=== PATIENT | male | born 1970 | race Caucasian/White ===

== ENCOUNTER 2017-03-08 09:45 | Inpatient (IN) ==
--- NOTE | 2017-03-08 10:09 | Anesthesia Evaluation PreOp ---
Date of Encounter: 03/08/17 Time of Encounter: 10:07 - Past History Planned Operation: Left Total Shoulder Cardiac History: HTN, Hyperlipidemia Pulmonary History: Smoker (35 years), Snore, NATALIA Dx (uses CPAP) [employer] History: Denies Any Significant HX Other Medical History: Diabetes Type II Anesthesia History: No Prior Anesthetic Complications, Past Anesthesia Alcohol Use: occasionally Drug use: none Medications and Allergies BuPROPion [Wellbutrin] 75 mg PO DAILY 03/08/17 [History] Glimepiride [Amaryl] 4 mg PO DAILY 03/08/17 [History] Lisinopril [Zestril] 20 mg PO DAILY 03/08/17 [History] Metformin HCl [Glucophage Xr] 1,500 mg PO DAILY 03/08/17 [History] Metformin HCl [Glucophage Xr] 750 mg PO HS 03/08/17 [History] 3 Allergy/AdvReac Type Severity Reaction Status Date / Time No Known Allergies Allergy Verified 03/08/17 10:13 - Meds/Allergy Pre-op Review Medications Reviewed: Yes Allergies Reviewed: Yes Beta Blockers on Current Med List: No Anesthesia Results - Labs Laboratory Tests 03/07/17 03/07/17 03/07/17 11:06 11:06 11:06 WBC 9.4 Hgb 15.5 Hct 45.1 Plt Count 298 PT 11.6 INR 1.1 APTT 29.2 Sodium 139 Potassium 3.7 BUN 12 Creatinine 0.88 - Imaging EKG: report reviewed (03/07/2017 SINUS RHYTHM) Anesthesia Exam O2 Sat Height 1.68 m Height 1.68 m Weight 104.78 kg Weight 104.78 kg O2 Sat by Pulse Oximetry 95 Vital Signs Temp Pulse Resp BP Pulse Ox 98.6 F 74 18 113/76 95 03/08/17 10:14 03/08/17 10:14 03/08/17 10:14 03/08/17 10:14 03/08/17 10:14 Height: 5'6''/1.68 m Weight: 231 lbs/104.8 kg NPO (# of Hours): 8 Pain Scale: 0 Pain Scale Used: Numeric (1 - 10) - HEENT Pupil (Motor): EOMI Mallampati: III Teeth: Normal, Missing Oral Opening: Greater than 3 - [employer] LOC: Oriented [employer] Motor: Normal RUE, Normal LUE, Normal RLE, Normal LLE, Normal Face [employer] Sensory: Normal: RUE, LUE, RLE, LLE, Face - Cardiac Rhythm: Regular Murmur: None - Pulmonary Breath Sounds: bilateral Clear Respiratory Effort: Symmetrical Anesthesia Assess/Plan ASA Score: 3 Modified Woodacre Scale for Level of Consciousness: Cooperative, oriented, and tranquil Anesthetic Plan: General, Regional Monitoring Plan: Standard Monitors Recovery Plan: PACU
[2017-03-08] MEDS ORDERED: Lidocaine -MPF 1% 2 ML VIAL ID ONE (10:10)
[2017-03-08] MEDS ORDERED: Albuterol 2.5 MG/3 ML NEBULIZER IH ONE (10:10)
[2017-03-08] MEDS ORDERED: CeFAZolin Syr 2,000MG/20 ML 2,000 MG/20 ML SYRINGE IVPB ONE (10:15)
[2017-03-08] MEDS ORDERED: Albuterol 2.5 MG/3 ML NEBULIZER ONE (10:17)
[2017-03-08] MEDS: Ringers Solution, Lactated 1,000 ML IVC SCH ×2 (10:31→13:11)
--- NOTE | 2017-03-08 10:43 | History & Physical Report ---
Date of Encounter: 03/08/17 Time of Encounter: 10:43 24 Hour HP Update - Instructions Instructions: If the History and Physical is less than 30 days old and was completed prior to A.M. admission and or procedure and has NOT been updated on calendar day of procedure please complete this update prior to performing procedure. - Update Patient reports changes in Medical Condition: No Changes in examination, assessment, or condition: No Changes in Medication: No Preop tests/diagnostics Reviewed: Yes Surgery Remains Indicated: Yes Consent for Planned Operative Procedure(s) Verified: Yes - Pre-Operative Checklist Preoperative Checklist Indicated: No Prophylactic Antibiotic Ordered: Yes Is VTE Prophylaxis Indicated?: NO
[2017-03-08] MEDS ORDERED: *HR* FentaNYL (PF) 100 MCG/2 ML VIAL ONE (11:50)
[2017-03-08] MEDS ORDERED: *HR* Midazolam HCl 2 MG/2 ML VIAL ONE (11:50)
[2017-03-08] MEDS ORDERED: ROPIVACAINE HCL/PF 0.5% 30 ML VIAL ONE (11:51)
[2017-03-08] MEDS ORDERED: Bupivacaine/Clonidine Syringe 1 EACH SYRINGE ONE (11:52)
[2017-03-08] MEDS ORDERED: *HR* Propofol 200 MG/20 ML VIAL IVP ONE (12:10)
[2017-03-08] MEDS ORDERED: *HR* Succinylcholine 200 MG/10 ML VIAL IVP ONE (12:12)
--- NOTE | 2017-03-08 12:32 | Discharge Summary ---
Date of Encounter: 03/09/17 Time of Encounter: 06:47 - Discharge Diagnosis (1) Hypertension Priority: Secondary Status: Chronic Qualifiers: Hypertension type: unspecified Qualified Code(s): I10 - Essential (primary ) hypertension (2) Hyperlipidemia Priority: Secondary Status: Chronic Qualifiers: Hyperlipidemia type: unspecified Qualified Code(s): E78.5 - Hyperlipidemia , unspecified (3) Tobacco abuse Priority: Secondary Status: Chronic (4) Obesity (BMI 35.0-39.9 without comorbidity) Priority: Secondary Status: Chronic (5) Arthritis of left shoulder region Priority: Primary Status: Chronic (6) Status post total replacement of left shoulder Priority: Primary Status: Acute - Discharge Medications Home Medications: BuPROPion [Wellbutrin] 75 mg PO DAILY 03/08/17 [History] Glimepiride [Amaryl] 4 mg PO DAILY 03/08/17 [History] Lisinopril [Zestril] 20 mg PO DAILY 03/08/17 [History] Metformin HCl [Glucophage Xr] 1,500 mg PO DAILY 03/08/17 [History] Metformin HCl [Glucophage Xr] 750 mg PO HS 03/08/17 [History] OxyCODONE Immed Rel [Roxicodone 5 MG] 5 mg PO Q4HR PRN #24 tablet 03/08/17 [Rx] Allergies/Adverse Reactions: 3 Allergy/AdvReac Type Severity Reaction Status Date / Time No Known Allergies Allergy Verified 03/08/17 10:13 Primary care physician: Halie Smith - Patient Status Disposition: Home, Self-Care Condition: Good Functional capacity at discharge: independent ambulation Overall status at discharge: patient is progressing back to baseline - Discharge Instructions Follow Up With: Halie Smith MD [Primary Care Provider] - - Hospital Course Hospital course: Mr. Pearl is a 47 year old male Status post left total shoulder replacement The patient had an uneventful postoperative course. They received antibiotics and physical therapy and were discharged in stable condition. There will follow -up in the office in 2 weeks. - Time Spent with Patient Total time spent providing and/or coordinating discharge services:
[2017-03-08] MEDS ORDERED: Dexamethasone 4 MG/ML VIAL ONE (12:39)
[2017-03-08] MEDS ORDERED: Ondansetron 4 MG/2 ML VIAL ONE (12:39)
[2017-03-08] MEDS ORDERED: Ketamine *HR* 500 MG/10 ML MDV ONE (12:42)
[2017-03-08] MEDS ORDERED: EPHEDrine 50 MG/ML VIAL ONE (12:46)
[2017-03-08] MEDS ORDERED: *HR* HYDROmorphone (PF) 1 MG/ML SYRINGE IVP PRN ×2 (13:05→14:42)
[2017-03-08] MEDS ORDERED: *HR* Promethazine 25 MG/ML VIAL IVP PRN (13:05)
[2017-03-08] MEDS ORDERED: *HR* Labetalol 20 MG/4 ML SYRINGE IVP PRN (13:05)
[2017-03-08] MEDS ORDERED: Ketorolac 30 MG/ML VIAL ONE (13:22)
--- NOTE | 2017-03-08 13:27 | Orthopedic Operative Note ---
Date of procedure: 03/08/17 Pre-op diagnosis: Left shoulder arthritis/subscap tear irreparable Post-op diagnosis: same Procedure: Procedure: Total Shoulder Replacment Reverse, left removal of humeral implant Estimated blood loss: 100 cc Hardware: Metal and polyethylene replacement: Arthrex large glenoid baseplate, 2 4.5 screws. 1 6.5 screw, 42+4 glenosphere, 13 humeral stem, poly insert 6 Exam Under anesthesia: Full range of motion no instability. Procedural Notes: a massive retracted irreparable tear subscap, grade 4 arthritic changes glenoid arthritic changes around the humeral implant. Operative procedure: The patient was brought to the operating room and placed on the operating room table. After general anesthesia was administered the operative shoulder was examined. Findings were noted. The patient was placed in the modified beachchair position. All pressure points were padded appropriately. And the head was stabilized in the neutral position. The operative extremity was prepped and draped in the sterile surgical fashion. The patient received IV antibiotics prior to skin incision. A standard deltopectoral approach was made to the operative shoulder. Incision was made to the skin and subcutaneous tissue,hemo stasis was obtained with Bovie cautery. Using careful blunt dissection the cephalic vein was identified and mobilized medially. The deltopectoral interval was developed and the clavipectoral fascia was incised. The subscap was massively torn and retracted and irreparable. The humerus was dislocated patient noted to have grade 4 arthritic changes around the humeral implant, and the humeral cut was made along the anatomic neck. The humeral implant was removed with the cut humeral head. Anterior and posterior Bankart retractors were placed to expose the glenoid. The glenoid had grade 4 arthritic changes. The glenoid guide was seated and the centering hole was made. It was reamed with the appropriate reamer. A large baseplate was seated and secured with (2) 4.5 screws and one 6.5 screw. The baseplate was irrigated and dried and the 42+4 Glenosphere was seated and secured with the Baird taper. The Baird taper was tested and found to be secure the humerus was redislocated and prepared with the diaphyseal reamers, followed by a broaching process up to the appropriate size 13 in the patient's anatomic version. The metaphyseal reamer was then utilized. Trial reduction found the shoulder to be relocatable. Trial components were removed , The appropriate 13 stem was impacted in place in the patient's anatomic version. Trial reduction found the shoulder to be relocatable and stable with the appropriate 6. Trial component was removed and the real 6 was seated and secured the shoulder was reduced. The shoulder had excellent motion and excellent stability and no evidence of dislocation. The deep tissue was irrigated with pulse irrigation. The deltopectoral interval was closed with a running #1 PDS suture, subcutaneous tissue was irrigated and closed with 0 PDS suture, the skin was closed with Dermabond. The patient was placed in a sterile dressing, abduction brace and extubated. The patient was then transferred to the recovery room in stable condition. Anesthesia: GETA Surgeon: Efren Ingram Condition: stable Disposition: PACU
--- NOTE | 2017-03-08 13:47 | Anesthesia Procedures ---
Date of Encounter: 03/08/17 Time of Encounter: 12:00 Procedures: Anesthesia - Nerve Block Procedure Date: 03/08/17 Time: 12:00 Pre-op Diagnosis: left shoulder arthritis Surgical Procedure: left total shoulder Checklist: Correct Patient Identifier, Correct procedure, History checked Correct side: Left Blood Thinner: No Monitor Applied: EKG, BP, Pulse Oximetry Supplemental Oxygen via Nasal Cannula (L/min): 2 Sedation: Versed (mg): 2 Sedation: Fentanyl (mcg): 50 Indication: Post Op Analgesia Pre-op Neuro Deficits: No Block Type: Supraclavicular, Other (ICP/ICB) Catheter placed: No Sterile Technique: Yes Ultrasound used: Yes Anatomy identified: Yes Visual spread of Local: Yes Smooth Injection of Local: Yes Pain with Injection of Local: No Prep: Chlorhexadine Needle: 22 x 50 mm Stimuplex Local: 0.25% Bupivicaine w/Clonidine 20 mcg/cc (20 ml), Ropivacaine (0.5% 30 ml with 8 of decadron) Volume (cc): 50 Number of Attempts: 1 Complications: None/effective block Vitals: VSS
[2017-03-08 14:17] LABS: Hematocrit 42.7 % (37.5-50.1); Hemoglobin 14.5 g/dL (12.9-16.9)
--- NOTE | 2017-03-08 14:20 | Anesthesia Evaluation Post Op ---
Date of Encounter: 03/08/17 Time of Encounter: 14:19 - Vital Signs Vital Signs: Selected Entries 03/08/17 14:06 Temperature 97.1 F L Pulse Rate 83 Respiratory Rate 12 Blood Pressure 107/76 O2 Sat by Pulse Oximetry 99 Oxygen Flow Rate (LPM) 2 - Lungs Lungs: Clear Ascult./Percussion - Airway Airway: Non-obstructed - Cardiovascular Regular Rate - Mental Status Mental Status: Alert & Oriented, Answers Appropriately - Pain Pain Scale: 2 Pain Scale used: Numeric (1 - 10) - Nausea Vomiting Nausea Vomiting: Not Present - Hydration Hydration: Ice chips, Has not voided - Discharge PostOp Status: Transfer Patient to floor
[2017-03-08] MEDS ORDERED: Naloxone 0.4 MG/ML INJ IVP PRN (14:42)
[2017-03-08] MEDS ORDERED: D5% in Water 1,000 ML IVC PRN (14:42)
[2017-03-08] MEDS ORDERED: Ringers Solution, Lactated 1,000 ML IVC SCH (14:42)
[2017-03-08] MEDS ORDERED: *HR* OxyCODONE Immed Rel 5 MG TABLET PO PRN ×2 (14:42)
[2017-03-08] MEDS ORDERED: MOM Conc 10 ML UD.LIQ PO PRN (14:42)
[2017-03-08] MEDS ORDERED: *HR* Dextrose 50 % in Water (Syg) 50 ML SYRINGE IVP PRN (14:42)
[2017-03-08] MEDS ORDERED: Temazepam 15 MG CAPSULE PO PRN (14:42)
[2017-03-08] MEDS ORDERED: Sennosides 8.6 MG TABLET PO PRN (14:42)
[2017-03-08] MEDS ORDERED: Dextrose Gel 15 GM PO PRN ×2 (14:42)
[2017-03-08] MEDS ORDERED: Ondansetron 4 MG/2 ML VIAL IVP PRN (14:42)
[2017-03-08] MEDS: *HR* Enoxaparin 30 MG/0.3 ML SYRINGE SQ SCH (16:29)
[2017-03-08] MEDS: Insulin LISPRO 300 UNITS/3 ML VIAL SQ SCH (16:29)
[2017-03-08] MEDS ORDERED: *HR* Enoxaparin 30 MG/0.3 ML SYRINGE SQ SCH (18:00)
[2017-03-08] MEDS ORDERED: NON-FORMULARY MEDICATION 1 EACH EACH (Metformin Hcl [Glucophage Xr] 750 MG) PO SCH (21:00)
[2017-03-08] MEDS ORDERED: Insulin LISPRO 300 UNITS/3 ML VIAL SQ SCH (21:00)
[2017-03-08] MEDS: CeFAZolin Premix DUPLEX 2,000 MG/50 ML BAG IVPB SCH (21:29)
[2017-03-09 01:36] LABS: Hematocrit 38.3 % (37.5-50.1)
[2017-03-09 01:45] LABS: Hemoglobin 12.9 g/dL (12.9-16.9)
[2017-03-09 05:29] VITALS: BP 111/70
[2017-03-09] MEDS: CeFAZolin Premix DUPLEX 2,000 MG/50 ML BAG IVPB SCH (05:49)
[2017-03-09] MEDS: *HR* Enoxaparin 30 MG/0.3 ML SYRINGE SQ SCH (05:49)
--- NOTE | 2017-03-09 06:48 | Orthopedics Progress Note ---
Date of Encounter: 03/09/17 Time of Encounter: 06:48 - Assessment and Plan (1) Hypertension Current Visit: Yes Status: Chronic Qualifiers: Hypertension type: unspecified Qualified Code(s): I10 - Essential (primary ) hypertension (2) Hyperlipidemia Current Visit: Yes Status: Chronic Qualifiers: Hyperlipidemia type: unspecified Qualified Code(s): E78.5 - Hyperlipidemia , unspecified (3) Tobacco abuse Current Visit: Yes Status: Chronic (4) Obesity (BMI 35.0-39.9 without comorbidity) Current Visit: Yes Status: Chronic (5) Arthritis of left shoulder region Current Visit: Yes Status: Chronic (6) Status post total replacement of left shoulder Current Visit: Yes Status: Acute Subjective Interval history: Patient was seen this morning doing well without complaints. Afebrile vital signs stable. Operative extremity: Neurovascularly intact Dressing clean dry and intact Calves nontender Assessment and plan: Continue with postoperative care Hematocrit 38 discharged today Objective Vital signs: Vital Signs Temp Pulse Resp BP Pulse Ox 03/09/17 05:28 97.8 F 87 16 111/70 94 03/09/17 00:06 97.4 F L 83 16 104/65 96 03/08/17 19:36 97.5 F L 83 16 107/66 93 03/08/17 16:26 98.0 F 76 15 112/80 94 03/08/17 16:02 98.2 F 77 15 118/76 98 03/08/17 15:22 97.8 F 70 14 111/76 99 03/08/17 14:54 97.5 F L 82 16 107/69 96 03/08/17 14:53 96 03/08/17 14:46 97.5 F L 82 16 107/69 96 03/08/17 14:06 97.1 F L 83 12 107/76 99 03/08/17 13:56 80 17 109/77 99 03/08/17 13:46 84 16 102/81 99 03/08/17 13:36 97.0 F L 81 18 143/90 96 03/08/17 12:07 66 17 111/63 97 03/08/17 11:54 68 16 120/78 93 03/08/17 10:41 18 113/76 95 03/08/17 10:14 98.6 F 74 18 113/76 95 Intake and Output 03/08/17 03/08/17 03/09/17 15:59 23:59 07:59 Intake Total 1000 / 1000 50 / 50 Output Total 100 / 100 Balance 900 / 900 50 / 50 Intake: IV Fluids 1000 / 1000 50 / 50 Lactated Ringers 1,000 ML @ 75 1000 / 1000 mls/hr IVC .[id number] [facility] Rx#: [id number] Ancef Premix DUPLEX 2,000 mg In 50 / 50 50 ml @ 100 mls/hr IVPB Q8H [facility] Rx#:[id number] Oral 0 / 0 Output: Estimated Blood Loss 100 / 100 Other: # Voids 2 2 Weight 104.78 kg Blood Glucose* 113 309 - Labs CBC & BMP: 03/09/17 01:08 Labs: Abnormal lab results POC Glucose 309 (58-89) H 03/08/17 19:48 - VTE Documentation of Mechanical Device: Venous foot pump, device Consult Discharge Plan - Plan Referrals: Halie Smith MD [Primary Care Provider] -
[2017-03-09] MEDS: Insulin LISPRO 300 UNITS/3 ML VIAL SQ SCH (07:56)
[2017-03-09] MEDS ORDERED: *HR* Glimepiride 4 MG TABLET PO SCH (09:00)
[2017-03-09] MEDS ORDERED: METFORMIN HCL 1500 MG PO SCH (09:00)
[2017-03-09] MEDS ORDERED: Lisinopril 20 MG TABLET PO SCH (09:00)
== END 2017-03-09 13:15 | disposition home or self-care (01) | DRG 483 ==
LOC: SAMDAY 09:45 → 3NENU 14:17
PROVIDERS: ADMIT Orthopaedic Surgery; ATTEND Orthopaedic Surgery

== ENCOUNTER 2019-10-16 09:13 | Inpatient (IN) ==
[2019-10-16] MEDS ORDERED: *HR* Propofol 200 MG/20 ML VIAL IVP ONE (09:28)
[2019-10-16] MEDS ORDERED: *HR* Succinylcholine 200 MG/10 ML VIAL IVP ONE (09:28)
[2019-10-16] MEDS ORDERED: Lidocaine -MPF 2% 2 ML VIAL ONE (09:28)
[2019-10-16] MEDS ORDERED: Ethanol\\Acetic Acid\\Na Ace\\Ben 1,000 ML IRRIG.SOLN IR ONE (09:45)
[2019-10-16] MEDS ORDERED: Vancomycin 1,000 MG VIAL ONE (09:45)
[2019-10-16] MEDS ORDERED: *HR* OxyCODONE Immed Rel 5 MG TABLET PO PRN ×2 (10:09→14:17)
[2019-10-16] MEDS ORDERED: Ondansetron 4 MG/2 ML VIAL IVP ONE (10:09)
[2019-10-16] MEDS ORDERED: *HR* Promethazine 25 MG/ML VIAL IVP PRN (10:09)
[2019-10-16] MEDS ORDERED: *HR* HYDROmorphone PF 0.5 MG/0.5 ML SYRINGE IVP PRN (10:09)
[2019-10-16] MEDS ORDERED: CeFAZolin Syr 2,000MG/20 ML 2,000 MG/20 ML SYRINGE IVPB ONE (10:18)
[2019-10-16] MEDS ORDERED: *HR* Midazolam HCl 2 MG/2 ML VIAL ONE (10:28)
[2019-10-16] MEDS ORDERED: Ropivacaine/PF 0.5% 30 ML VIAL ONE (10:29)
[2019-10-16] MEDS ORDERED: ROPIVACAINE/PF/NS 0.25% 1 EACH SYRINGE INTRAART ONE (10:29)
[2019-10-16] MEDS ORDERED: *HR* FentaNYL (PF) 100 MCG/2 ML VIAL ONE (10:29)
[2019-10-16] MEDS ORDERED: Ringers Solution, Lactated 1,000 ML IVC SCH (10:30)
[2019-10-16] MEDS ORDERED: Lidocaine -MPF 4% 5 ML AMPUL ONE (11:44)
[2019-10-16] MEDS ORDERED: *HR* PHENYLEPHRINE 1,000 MCG/10 ML SYRINGE IVP ONE (11:55)
[2019-10-16] MEDS ORDERED: Dexamethasone 4 MG/ML VIAL ONE (12:16)
[2019-10-16] MEDS ORDERED: Ondansetron 4 MG/2 ML VIAL ONE (12:16)
[2019-10-16] MEDS ORDERED: EPHEDrine 50 MG/ML VIAL ONE (12:32)
[2019-10-16 14:05] LABS: Hematocrit 42.5 % (37.5-50.1); Hemoglobin 13.9 g/dL (12.9-16.9)
[2019-10-16] MEDS ORDERED: D5% in Water 1,000 ML IVC PRN (14:17)
[2019-10-16] MEDS ORDERED: *HR* Dextrose 50 % in Water (Vial) 50 ML VIAL IVP PRN (14:17)
[2019-10-16] MEDS ORDERED: MOM Conc 10 ML UD.LIQ PO PRN (14:17)
[2019-10-16] MEDS ORDERED: Sennosides 8.6 MG TABLET PO PRN (14:17)
[2019-10-16] MEDS ORDERED: Naloxone 0.4 MG/ML INJ IVP PRN (14:17)
[2019-10-16] MEDS ORDERED: Ondansetron 4 MG/2 ML VIAL IVP PRN (14:17)
[2019-10-16] MEDS ORDERED: Dextrose Gel 15 GM/37.5 ML TUBE PO PRN ×2 (14:17)
[2019-10-16] MEDS: *HR* Enoxaparin 30 MG/0.3 ML SYRINGE SQ SCH (16:45)
[2019-10-16] MEDS: CeFAZolin 2 GM/120 ML BAG IVPB SCH ×2 (16:46→23:52)
[2019-10-16] MEDS: Insulin LISPRO 300 UNITS/3 ML VIAL SQ SCH ×2 (17:01→17:03)
[2019-10-16] MEDS ORDERED: *HR* Enoxaparin 30 MG/0.3 ML SYRINGE SQ SCH (18:00)
[2019-10-16] MEDS: Ringers Solution, Lactated 1,000 ML IVC SCH (20:33)
[2019-10-16] MEDS: *HR* OxyCODONE/APAP 5/325 TABLET PO PRN (20:42)
[2019-10-16] MEDS ORDERED: Insulin LISPRO 300 UNITS/3 ML VIAL SQ SCH (21:00)
[2019-10-17] MEDS: *HR* Enoxaparin 30 MG/0.3 ML SYRINGE SQ SCH (05:58)
[2019-10-17] MEDS ORDERED: lisinopriL 20 MG TABLET PO SCH (09:00)
[2019-10-17] MEDS ORDERED: METFORMIN HCL PO SCH (09:00)
[2019-10-17] MEDS ORDERED: *HR* Glimepiride 4 MG TABLET PO SCH (09:00)
[2019-10-17] MEDS: Insulin LISPRO 300 UNITS/3 ML VIAL SQ SCH (09:02)
[2019-10-17] MEDS: Ringers Solution, Lactated 1,000 ML IVC SCH (09:13)
[2019-10-17] MEDS: *HR* OxyCODONE/APAP 5/325 TABLET PO PRN (09:20)
[2019-10-17 11:16] LABS: Hematocrit 38.7 % (37.5-50.1); Hemoglobin 12.7 g/dL (12.9-16.9)
[2019-10-17 11:34] LABS: BUN/Creatinine Ratio 18 (6-26); Blood Urea Nitrogen 13 mg/dL (6-20); Calcium 9.1 mg/dL (8.6-10.3); Carbon Dioxide 29 mEq/L (23-29); Chloride 100 mEq/L (98-107); Glucose 259 mg/dL (70-105); Osmolality,Calculated 295 (280-300); Potassium 3.9 mEq/L (3.5-5.1); Sodium 138 mEq/L (136-145); eGFR For African Americans > 60 (> 60); eGFR For Non-African Americans > 60 (> 60)
[2019-10-17 11:46] VITALS: BP 137/84
== END 2019-10-17 13:30 | disposition home or self-care (01) | DRG 483 ==
LOC: SAMDAY 09:13 → 3NENU 14:26
PROVIDERS: ADMIT Orthopaedic Surgery; ATTEND Orthopaedic Surgery

== ENCOUNTER 2020-07-14 21:05 | Inpatient (IN) ==
[2020-07-14 21:37] LABS: Basophils % 0.4 %; Hematocrit 45.7 % (37.5-50.1); Hemoglobin 15.3 g/dL (12.9-16.9); Immature Granulocytes % 0.6 % (0-4); Lymphocytes # 0.8 K/mcL (0.6-4.6); Lymphocytes % 16.3 %; Mean Corpuscular HGB Conc 33.5 g/dL (31.6-35.5); Mean Corpuscular Hemoglobin 32.3 pg (28.0-33.3); Mean Corpuscular Volume 96.4 fL (83.0-100.0); Mean Platelet Volume 9.6 fL (9.4-12.4); Monocytes # 0.6 K/mcL (0.0-1.3); Monocytes % 11.4 %; Neutrophils # 3.6 K/mcL (1.6-8.9); Platelet Count 223 K/mcL (140-400); Red Blood Count 4.74 M/mcL (4.19-5.50); Red Cell Distribution Width 13.1 % (11.5-14.5); Segmented Neutrophils % 71.3 %; White Blood Count 5.1 K/mcL (4.3-11.1)
[2020-07-14 21:57] LABS: BUN/Creatinine Ratio 19 (6-26); Blood Urea Nitrogen 20 mg/dL (6-20); Calcium 8.8 mg/dL (8.6-10.3); Carbon Dioxide 22 mEq/L (23-29); Chloride 98 mEq/L (98-107); Glucose 244 mg/dL (70-105); Osmolality,Calculated 285 (280-300); Potassium 3.8 mEq/L (3.5-5.1); Sodium 132 mEq/L (136-145); Troponin I 0.03 ng/mL (< 0.04); eGFR For African Americans > 60 (> 60); eGFR For Non-African Americans > 60 (> 60)
[2020-07-14 23:54] LABS: Adenovirus Not Detected (Not Detect); Coronavirus 229E Not Detected (Not Detect); Coronavirus HKU1 Not Detected (Not Detect); Coronavirus NL63 Not Detected (Not Detect); Coronavirus OC43 Not Detected (Not Detect)
[2020-07-14 23:56] LABS: Bordetella Pertussis Not Detected (Not Detect); Chlamydophila pneumoniae Not Detected (Not Detect); Human Metapneumovirus Not Detected (Not Detect); Human Rhinovirus/Enterovirus Not Detected (Not Detect); Influenza A Subtype 2009 H1 Not Detected (Not Detect); Influenza B Not Detected (Not Detect); Mycoplasma pneumoniae Not Detected (Not Detect); Parainfluenza Virus 1 Not Detected (Not Detect); Parainfluenza Virus 2 Not Detected (Not Detect); Parainfluenza Virus 3 Not Detected (Not Detect); Parainfluenza Virus 4 Not Detected (Not Detect); Respiratory Syncytial Virus Not Detected (Not Detect); SARS-CoV-2 DETECTED (Not Detect)
[2020-07-15] MEDS ORDERED: Dexamethasone Sodium Phos/PF 10 MG/ML VIAL IVP ONE (01:25)
[2020-07-15] MEDS ORDERED: Naloxone 0.4 MG/ML INJ IVP PRN (02:18)
[2020-07-15] MEDS ORDERED: Melatonin 3 MG TABLET PO PRN (02:18)
[2020-07-15] MEDS ORDERED: Ondansetron 4 MG/2 ML VIAL IVP PRN (02:18)
[2020-07-15] MEDS ORDERED: Dextrose Gel 15 GM/37.5 ML TUBE PO PRN ×2 (02:28)
[2020-07-15] MEDS ORDERED: *HR* Dextrose 50 % in Water (Vial) 50 ML VIAL IVP PRN (02:28)
[2020-07-15] MEDS ORDERED: D5% in Water 1,000 ML IVC PRN (02:28)
[2020-07-15] MEDS ORDERED: Insulin DETEMIR 100 UNIT/ML X5UNITS SUBQ ONE (02:29)
[2020-07-15] MEDS ORDERED: Ringers Solution, Lactated 1,000 ML IVC SCH (06:15)
[2020-07-15 06:46] LABS: Alanine Aminotransferase 23 Units/L (7-52); Aspartate Amino Transferase 44 Units/L (13-39)
[2020-07-15] MEDS: Dexamethasone Sodium Phos/PF 10 MG/ML VIAL IVP SCH (11:37)
[2020-07-15] MEDS: Insulin LISPRO 300 UNITS/3 ML VIAL SUBQ SCH ×4 (11:39→21:32)
[2020-07-15] MEDS: PARoxetine 20 MG TABLET PO SCH (11:40)
[2020-07-15] MEDS: *HR* Enoxaparin 40 MG/0.4 ML SYRINGE SQ SCH ×2 (11:40→21:34)
[2020-07-15] MEDS: lisinopriL 20 MG TABLET PO SCH (11:40)
[2020-07-15] MEDS ORDERED: Nicotine 2 MG GUM BC PRN (13:08)
[2020-07-15] MEDS ORDERED: Nicotine 14 MG PATCH.TD24 TD PRN (13:08)
[2020-07-15 13:17] LABS: Estimated Average Glucose 209 mg/dl; Hemoglobin A1C 8.9 %
[2020-07-15 14:00] LABS: BUN/Creatinine Ratio 30 (6-26); Blood Urea Nitrogen 28 mg/dL (6-20); Calcium 8.8 mg/dL (8.6-10.3); Carbon Dioxide 23 mEq/L (23-29); Chloride 97 mEq/L (98-107); Glucose 356 mg/dL (70-105); Osmolality,Calculated 294 (280-300); Potassium 4.3 mEq/L (3.5-5.1); Sodium 132 mEq/L (136-145); eGFR For African Americans > 60 (> 60); eGFR For Non-African Americans > 60 (> 60)
[2020-07-15] MEDS ORDERED: Remdesivir 200 MG in 0.9 % Sodium Chloride 100 ML IVPB ONE (14:00)
[2020-07-15] MEDS: Insulin DETEMIR 100 UNIT/ML X5UNITS SUBQ SCH (17:07)
[2020-07-15] MEDS ORDERED: Chloraseptic Spray 177 ML BOTTLE MM PRN (23:10)
[2020-07-16 04:16] LABS: Basophils % 0.1 %; Hematocrit 46.7 % (37.5-50.1); Hemoglobin 15.1 g/dL (12.9-16.9); Immature Granulocytes % 0.4 % (0-4); Lymphocytes # 0.9 K/mcL (0.6-4.6); Lymphocytes % 10.4 %; Mean Corpuscular HGB Conc 32.3 g/dL (31.6-35.5); Mean Corpuscular Hemoglobin 31.5 pg (28.0-33.3); Mean Corpuscular Volume 97.5 fL (83.0-100.0); Monocytes # 0.5 K/mcL (0.0-1.3); Monocytes % 5.4 %; Neutrophils # 7.5 K/mcL (1.6-8.9); Platelet Count 271 K/mcL (140-400); Red Blood Count 4.79 M/mcL (4.19-5.50); Red Cell Distribution Width 13.1 % (11.5-14.5); Segmented Neutrophils % 83.7 %
[2020-07-16 04:34] LABS: BUN/Creatinine Ratio 30 (6-26); Blood Urea Nitrogen 25 mg/dL (6-20); Calcium 9.2 mg/dL (8.6-10.3); Carbon Dioxide 26 mEq/L (23-29); Chloride 98 mEq/L (98-107); Glucose 289 mg/dL (70-105); Osmolality,Calculated 293 (280-300); Potassium 3.9 mEq/L (3.5-5.1); Sodium 134 mEq/L (136-145); eGFR For African Americans > 60 (> 60); eGFR For Non-African Americans > 60 (> 60)
[2020-07-16 04:35] LABS: Albumin 3.6 g/dL (3.5-5.7); Albumin/Globulin Ratio 0.9 (1.1-2.2); Bilirubin,Direct 0.1 mg/dL (0.0-0.2); Bilirubin,Indirect 0.3 mg/dL (0.0-1.0); Bilirubin,Total 0.4 mg/dL (0.3-1.0); Globulin 4.2 g/dL (2.4-3.5); Total Protein 7.8 g/dL (6.4-8.9)
[2020-07-16 04:40] LABS: D-Dimer 575 ng/mLFEU (0-500); Fibrinogen 870 mg/dL (169-393)
[2020-07-16] MEDS: Insulin LISPRO 300 UNITS/3 ML VIAL SUBQ SCH ×5 (08:10→21:41)
[2020-07-16] MEDS: Insulin DETEMIR 100 UNIT/ML X5UNITS SUBQ SCH (08:12)
[2020-07-16] MEDS: *HR* Enoxaparin 40 MG/0.4 ML SYRINGE SQ SCH ×2 (08:13→21:39)
[2020-07-16] MEDS: lisinopriL 20 MG TABLET PO SCH (08:14)
[2020-07-16] MEDS: PARoxetine 20 MG TABLET PO SCH (08:14)
[2020-07-16] MEDS: Dexamethasone Sodium Phos/PF 10 MG/ML VIAL IVP SCH (08:15)
[2020-07-16] MEDS: Remdesivir 100 MG in 0.9 % Sodium Chloride 100 ML IVPB SCH (15:39)
[2020-07-17 04:47] LABS: Hematocrit 43.6 % (37.5-50.1); Hemoglobin 14.5 g/dL (12.9-16.9); Mean Corpuscular HGB Conc 33.3 g/dL (31.6-35.5); Mean Corpuscular Hemoglobin 32.8 pg (28.0-33.3); Mean Corpuscular Volume 98.6 fL (83.0-100.0); Mean Platelet Volume 9.9 fL (9.4-12.4); Platelet Count 318 K/mcL (140-400); Red Blood Count 4.42 M/mcL (4.19-5.50)
[2020-07-17 04:48] LABS: White Blood Count 14.4 K/mcL (4.3-11.1)
[2020-07-17 05:05] LABS: Albumin 3.3 g/dL (3.5-5.7); Albumin/Globulin Ratio 0.9 (1.1-2.2); Bilirubin,Direct 0.1 mg/dL (0.0-0.2); Bilirubin,Indirect 0.3 mg/dL (0.0-1.0); Bilirubin,Total 0.4 mg/dL (0.3-1.0); Globulin 3.8 g/dL (2.4-3.5); Total Protein 7.1 g/dL (6.4-8.9)
[2020-07-17 05:06] LABS: BUN/Creatinine Ratio 35 (6-26); Blood Urea Nitrogen 26 mg/dL (6-20); Carbon Dioxide 29 mEq/L (23-29); Chloride 99 mEq/L (98-107); Glucose 231 mg/dL (70-105); Osmolality,Calculated 294 (280-300); Potassium 4.5 mEq/L (3.5-5.1); Sodium 136 mEq/L (136-145); eGFR For African Americans > 60 (> 60); eGFR For Non-African Americans > 60 (> 60)
[2020-07-17] MEDS: PARoxetine 20 MG TABLET PO SCH (07:38)
[2020-07-17] MEDS: lisinopriL 20 MG TABLET PO SCH (07:38)
[2020-07-17] MEDS: Dexamethasone Sodium Phos/PF 10 MG/ML VIAL IVP SCH (07:39)
[2020-07-17] MEDS: *HR* Enoxaparin 40 MG/0.4 ML SYRINGE SQ SCH ×2 (07:39→20:51)
[2020-07-17] MEDS: Insulin LISPRO 300 UNITS/3 ML VIAL SUBQ SCH ×3 (07:40→16:24)
[2020-07-17] MEDS: Insulin DETEMIR 100 UNIT/ML X5UNITS SUBQ SCH ×2 (07:40→20:52)
[2020-07-17] MEDS: Remdesivir 100 MG in 0.9 % Sodium Chloride 100 ML IVPB SCH (13:41)
[2020-07-18] MEDS: Insulin LISPRO 300 UNITS/3 ML VIAL SUBQ SCH ×5 (06:01→21:04)
[2020-07-18 06:36] LABS: Hematocrit 43.3 % (37.5-50.1); Hemoglobin 14.4 g/dL (12.9-16.9); Mean Corpuscular HGB Conc 33.3 g/dL (31.6-35.5); Mean Corpuscular Hemoglobin 32.7 pg (28.0-33.3); Mean Corpuscular Volume 98.2 fL (83.0-100.0); Mean Platelet Volume 10.1 fL (9.4-12.4); Platelet Count 362 K/mcL (140-400); Red Blood Count 4.41 M/mcL (4.19-5.50); Red Cell Distribution Width 12.9 % (11.5-14.5); White Blood Count 15.4 K/mcL (4.3-11.1)
[2020-07-18 07:05] LABS: BUN/Creatinine Ratio 40 (6-26); Blood Urea Nitrogen 25 mg/dL (6-20); Calcium 8.9 mg/dL (8.6-10.3); Carbon Dioxide 28 mEq/L (23-29); Chloride 98 mEq/L (98-107); Glucose 213 mg/dL (70-105); Osmolality,Calculated 291 (280-300); Potassium 4.4 mEq/L (3.5-5.1); Sodium 135 mEq/L (136-145); eGFR For African Americans > 60 (> 60); eGFR For Non-African Americans > 60 (> 60)
[2020-07-18 07:09] LABS: Albumin 3.3 g/dL (3.5-5.7); Bilirubin,Direct 0.1 mg/dL (0.0-0.2); Bilirubin,Indirect 0.4 mg/dL (0.0-1.0); Bilirubin,Total 0.5 mg/dL (0.3-1.0); Globulin 3.4 g/dL (2.4-3.5); Total Protein 6.7 g/dL (6.4-8.9)
[2020-07-18] MEDS: *HR* Enoxaparin 40 MG/0.4 ML SYRINGE SQ SCH (08:52)
[2020-07-18] MEDS: PARoxetine 20 MG TABLET PO SCH (08:59)
[2020-07-18] MEDS: lisinopriL 20 MG TABLET PO SCH (09:00)
[2020-07-18] MEDS: Insulin DETEMIR 100 UNIT/ML X5UNITS SUBQ SCH ×2 (09:00→21:06)
[2020-07-18] MEDS: Dexamethasone Sodium Phos/PF 10 MG/ML VIAL IVP SCH (09:00)
[2020-07-18] MEDS: Remdesivir 100 MG in 0.9 % Sodium Chloride 100 ML IVPB SCH (14:01)
[2020-07-19 03:24] LABS: Hemoglobin 14.6 g/dL (12.9-16.9); Mean Corpuscular HGB Conc 33.2 g/dL (31.6-35.5); Mean Corpuscular Hemoglobin 31.7 pg (28.0-33.3); Mean Corpuscular Volume 95.7 fL (83.0-100.0); Mean Platelet Volume 9.8 fL (9.4-12.4); Platelet Count 397 K/mcL (140-400); Red Cell Distribution Width 12.7 % (11.5-14.5); White Blood Count 17.1 K/mcL (4.3-11.1)
[2020-07-19 03:40] LABS: BUN/Creatinine Ratio 33 (6-26); Blood Urea Nitrogen 21 mg/dL (6-20); Calcium 8.7 mg/dL (8.6-10.3); Carbon Dioxide 30 mEq/L (23-29); Chloride 98 mEq/L (98-107); Glucose 178 mg/dL (70-105); Osmolality,Calculated 291 (280-300); Potassium 4.2 mEq/L (3.5-5.1); Sodium 137 mEq/L (136-145); eGFR For African Americans > 60 (> 60); eGFR For Non-African Americans > 60 (> 60)
[2020-07-19 03:45] LABS: Albumin 3.2 g/dL (3.5-5.7); Albumin/Globulin Ratio 0.9 (1.1-2.2); Bilirubin,Direct 0.1 mg/dL (0.0-0.2); Bilirubin,Indirect 0.5 mg/dL (0.0-1.0); Bilirubin,Total 0.6 mg/dL (0.3-1.0); Globulin 3.7 g/dL (2.4-3.5); Total Protein 6.9 g/dL (6.4-8.9)
[2020-07-19] MEDS: Insulin LISPRO 300 UNITS/3 ML VIAL SUBQ SCH ×4 (08:20→20:23)
[2020-07-19] MEDS: PARoxetine 20 MG TABLET PO SCH (08:22)
[2020-07-19] MEDS: lisinopriL 20 MG TABLET PO SCH (08:22)
[2020-07-19] MEDS: Insulin DETEMIR 100 UNIT/ML X5UNITS SUBQ SCH ×2 (08:22→20:24)
[2020-07-19] MEDS: Dexamethasone Sodium Phos/PF 10 MG/ML VIAL IVP SCH (08:27)
[2020-07-19] MEDS ORDERED: *HR* Enoxaparin 40 MG/0.4 ML SYRINGE SQ SCH (09:00)
[2020-07-19] MEDS ORDERED: *HR* LORazepam 2 MG/ML VIAL IVP PRN (12:31)
[2020-07-19] MEDS: Remdesivir 100 MG in 0.9 % Sodium Chloride 100 ML IVPB SCH (12:46)
[2020-07-19] MEDS ORDERED: Furosemide 20 MG/2 ML VIAL IVP ONE (15:19)
[2020-07-19 19:50] LABS: C-Reactive Protein 167 mg/L (Less than 10); Lactate Dehydrogenase 647 Units/L (140-271)
[2020-07-19 20:01] LABS: ABG Base Excess 7 mEq/L (-2 to 3); ABG HCO3 31 mEq/L (21-27); ABG Oxygen Saturation 92 % (95-98); ABG PCO2 42 mmHg (35-45); ABG PH 7.48 pH Units (7.32-7.45); ABG PO2 61 mmHg (85-104); ABG TCO2 33 mEq/L (20-26)
[2020-07-19 20:06] LABS: Ferritin 537 ng/mL (20-250); Hepatitis B Surface Antigen Nonreactive (Nonreactive)
[2020-07-19 20:35] LABS: Hepatitis C Virus Antibody Nonreactive (Nonreactive)
[2020-07-19 20:36] LABS: Hepatitis B Core IgM Nonreactive (Nonreactive)
[2020-07-19 20:37] LABS: Hepatitis A Antibody IgM Nonreactive (Nonreactive)
[2020-07-19] MEDS: Dexmedetomidine HCl 400 MCG/100 ML MLS IVC SCH (21:07)
[2020-07-20 06:54] LABS: Basophils % 0.2 %; Eosinophils % 0.1 %; Hematocrit 47.4 % (37.5-50.1); Hemoglobin 15.5 g/dL (12.9-16.9); Immature Granulocytes % 1.3 % (0-4); Lymphocytes # 0.9 K/mcL (0.6-4.6); Lymphocytes % 5.5 %; Mean Corpuscular HGB Conc 32.7 g/dL (31.6-35.5); Mean Corpuscular Hemoglobin 31.9 pg (28.0-33.3); Mean Corpuscular Volume 97.5 fL (83.0-100.0); Mean Platelet Volume 9.8 fL (9.4-12.4); Monocytes # 0.2 K/mcL (0.0-1.3); Monocytes % 1.3 %; Neutrophils # 15.4 K/mcL (1.6-8.9); Platelet Count 446 K/mcL (140-400); Red Blood Count 4.86 M/mcL (4.19-5.50); Red Cell Distribution Width 12.8 % (11.5-14.5); Segmented Neutrophils % 91.6 %; White Blood Count 16.8 K/mcL (4.3-11.1)
[2020-07-20 07:17] LABS: Alanine Aminotransferase 22 Units/L (7-52); Albumin 3.3 g/dL (3.5-5.7); Albumin/Globulin Ratio 0.8 (1.1-2.2); Alkaline Phosphatase 58 Units/L (34-104); Aspartate Amino Transferase 36 Units/L (13-39); BUN/Creatinine Ratio 32 (6-26); Bilirubin,Direct 0.2 mg/dL (0.0-0.2); Bilirubin,Indirect 0.6 mg/dL (0.0-1.0); Bilirubin,Total 0.8 mg/dL (0.3-1.0); Blood Urea Nitrogen 25 mg/dL (6-20); Calcium 9.2 mg/dL (8.6-10.3); Carbon Dioxide 34 mEq/L (23-29); Chloride 96 mEq/L (98-107); Globulin 4.2 g/dL (2.4-3.5); Glucose 86 mg/dL (70-105); Osmolality,Calculated 290 (280-300); Potassium 4.2 mEq/L (3.5-5.1); Sodium 138 mEq/L (136-145); Total Protein 7.5 g/dL (6.4-8.9); eGFR For African Americans > 60 (> 60); eGFR For Non-African Americans > 60 (> 60)
[2020-07-20] MEDS: Insulin LISPRO 300 UNITS/3 ML VIAL SUBQ SCH ×4 (07:49→20:24)
[2020-07-20] MEDS ORDERED: Nicotine 2 MG GUM BC PRN (08:00)
[2020-07-20] MEDS ORDERED: *HR* Dextrose 50 % in Water (Vial) 50 ML VIAL IVP PRN (08:00)
[2020-07-20] MEDS ORDERED: Naloxone 0.4 MG/ML INJ IVP PRN (08:00)
[2020-07-20] MEDS ORDERED: Ondansetron 4 MG/2 ML VIAL IVP PRN (08:00)
[2020-07-20] MEDS ORDERED: Dextrose Gel 15 GM/37.5 ML TUBE PO PRN ×2 (08:00)
[2020-07-20] MEDS ORDERED: Chloraseptic Spray 177 ML BOTTLE MM PRN (08:00)
[2020-07-20] MEDS ORDERED: Nicotine 14 MG PATCH.TD24 TD PRN (08:00)
[2020-07-20] MEDS ORDERED: D5% in Water 1,000 ML IVC PRN (08:00)
[2020-07-20] MEDS ORDERED: *HR* LORazepam 2 MG/ML VIAL IVP PRN (08:00)
[2020-07-20] MEDS: PARoxetine 20 MG TABLET PO SCH (08:18)
[2020-07-20] MEDS: Insulin DETEMIR 100 UNIT/ML X5UNITS SUBQ SCH ×2 (08:18→20:24)
[2020-07-20] MEDS: Dexamethasone Sodium Phos/PF 10 MG/ML VIAL IVP SCH (08:19)
[2020-07-20] MEDS ORDERED: Furosemide 40 MG/4 ML VIAL IVP ONE (08:44)
[2020-07-20] MEDS ORDERED: Dexmedetomidine HCl 400 MCG/100 ML MLS IVC ONE (08:49)
[2020-07-20] MEDS ORDERED: Dexamethasone Sodium Phos/PF 10 MG/ML VIAL IVP SCH (09:00)
[2020-07-20] MEDS ORDERED: *HR* Enoxaparin 40 MG/0.4 ML SYRINGE SQ SCH (09:00)
[2020-07-20] MEDS ORDERED: lisinopriL 20 MG TABLET PO SCH (09:00)
[2020-07-20] MEDS ORDERED: Pantoprazole 40 MG VIAL IVP SCH (09:00)
[2020-07-20] MEDS ORDERED: Insulin DETEMIR 100 UNIT/ML X5UNITS SUBQ SCH (09:00)
[2020-07-20 09:07] LABS: ABG Base Excess 9 mEq/L (-2 to 3); ABG HCO3 33 mEq/L (21-27); ABG Oxygen Saturation 97 % (95-98); ABG PCO2 40 mmHg (35-45); ABG PH 7.52 pH Units (7.32-7.45); ABG PO2 81 mmHg (85-104); ABG TCO2 34 mEq/L (20-26); Blood Gas Modality AVAPS; Blood Gas VT 600 cc
[2020-07-20] MEDS: Cefepime HCl 2,000 MG in 0.9 % Sodium Chloride Mini Bag 100 ML IVPB SCH ×2 (09:50→17:40)
[2020-07-20] MEDS: Dexmedetomidine HCl 400 MCG/100 ML MLS IVC SCH ×2 (09:50→11:14)
[2020-07-20] MEDS ORDERED: Lidocaine -MPF 1% 5 ML AMPUL INFILT ONE (09:56)
[2020-07-20] MEDS: *HR* Enoxaparin 40 MG/0.4 ML SYRINGE SQ SCH (20:25)
[2020-07-20] MEDS: Melatonin 3 MG TABLET PO PRN (21:27)
[2020-07-21] MEDS: Dexmedetomidine HCl 400 MCG/100 ML MLS IVC SCH ×3 (00:21→16:31)
[2020-07-21] MEDS: Cefepime HCl 2,000 MG in 0.9 % Sodium Chloride Mini Bag 100 ML IVPB SCH ×3 (01:09→18:06)
[2020-07-21 04:06] LABS: Hemoglobin 14.8 g/dL (12.9-16.9); Mean Corpuscular HGB Conc 32.9 g/dL (31.6-35.5); Mean Corpuscular Volume 97.4 fL (83.0-100.0); Mean Platelet Volume 9.9 fL (9.4-12.4); Platelet Count 516 K/mcL (140-400); Red Blood Count 4.62 M/mcL (4.19-5.50); Red Cell Distribution Width 13.2 % (11.5-14.5); White Blood Count 16.1 K/mcL (4.3-11.1)
[2020-07-21 04:08] LABS: VBG Ionized Calcium 1.06 mmol/L (1.15-1.35)
[2020-07-21 04:10] LABS: Alanine Aminotransferase 18 Units/L (7-52); Albumin/Globulin Ratio 0.7 (1.1-2.2); Alkaline Phosphatase 55 Units/L (34-104); Aspartate Amino Transferase 27 Units/L (13-39); BUN/Creatinine Ratio 53 (6-26); Bilirubin,Direct 0.1 mg/dL (0.0-0.2); Bilirubin,Indirect 0.7 mg/dL (0.0-1.0); Bilirubin,Total 0.8 mg/dL (0.3-1.0); Blood Urea Nitrogen 39 mg/dL (6-20); C-Reactive Protein 212 mg/L (Less than 10); Calcium 8.8 mg/dL (8.6-10.3); Carbon Dioxide 27 mEq/L (23-29); Chloride 99 mEq/L (98-107); Globulin 4.2 g/dL (2.4-3.5); Glucose 122 mg/dL (70-105); Magnesium 2.1 mg/dL (1.6-2.6); Osmolality,Calculated 295 (280-300); Phosphorous 4.3 mg/dL (2.7-4.5); Potassium 4.2 mEq/L (3.5-5.1); Sodium 137 mEq/L (136-145); Total Protein 7.2 g/dL (6.4-8.9); eGFR For African Americans > 60 (> 60); eGFR For Non-African Americans > 60 (> 60)
[2020-07-21] MEDS: Calcium Gluconate 1gm/50mL 1 GM/50 ML BAG IVPB PRN (05:27)
[2020-07-21] MEDS: PARoxetine 20 MG TABLET PO SCH (07:51)
[2020-07-21] MEDS: Dexamethasone Sodium Phos/PF 10 MG/ML VIAL IVP SCH (07:53)
[2020-07-21] MEDS: *HR* Enoxaparin 40 MG/0.4 ML SYRINGE SQ SCH ×2 (07:53→20:14)
[2020-07-21] MEDS: Insulin DETEMIR 100 UNIT/ML X5UNITS SUBQ SCH ×2 (08:29→20:16)
[2020-07-21] MEDS: Insulin LISPRO 300 UNITS/3 ML VIAL SUBQ SCH ×4 (08:29→20:36)
[2020-07-21 12:48] LABS: VBG Ionized Calcium 1.05 mmol/L (1.15-1.35)
[2020-07-21] MEDS ORDERED: Furosemide 20 MG/2 ML VIAL IVP ONE (15:51)
[2020-07-21 20:09] LABS: QuantiFERON Mitogen minus NIL 0.65 IU/mL
[2020-07-21] MEDS: Melatonin 3 MG TABLET PO PRN (20:14)
[2020-07-22] MEDS: Cefepime HCl 2,000 MG in 0.9 % Sodium Chloride Mini Bag 100 ML IVPB SCH ×3 (01:23→18:02)
[2020-07-22] MEDS: Dexmedetomidine HCl 400 MCG/100 ML MLS IVC SCH ×2 (03:42→18:02)
[2020-07-22 04:13] LABS: VBG Ionized Calcium 1.06 mmol/L (1.15-1.35)
[2020-07-22 04:14] LABS: Basophils % 0.3 %; Eosinophils # 0.1 K/mcL (0.0-0.6); Hematocrit 44.1 % (37.5-50.1); Hemoglobin 14.6 g/dL (12.9-16.9); Immature Granulocytes % 1.4 % (0-4); Lymphocytes # 0.5 K/mcL (0.6-4.6); Lymphocytes % 3.8 %; Mean Corpuscular HGB Conc 33.1 g/dL (31.6-35.5); Mean Corpuscular Hemoglobin 31.9 pg (28.0-33.3); Mean Corpuscular Volume 96.5 fL (83.0-100.0); Mean Platelet Volume 9.7 fL (9.4-12.4); Monocytes # 0.3 K/mcL (0.0-1.3); Neutrophils # 12.7 K/mcL (1.6-8.9); Platelet Count 488 K/mcL (140-400); Red Blood Count 4.57 M/mcL (4.19-5.50); Red Cell Distribution Width 12.9 % (11.5-14.5); Segmented Neutrophils % 91.5 %; White Blood Count 13.8 K/mcL (4.3-11.1)
[2020-07-22 04:27] LABS: Albumin/Globulin Ratio 0.7 (1.1-2.2); BUN/Creatinine Ratio 39 (6-26); Bilirubin,Direct 0.1 mg/dL (0.0-0.2); Bilirubin,Indirect 0.7 mg/dL (0.0-1.0); Bilirubin,Total 0.8 mg/dL (0.3-1.0); Blood Urea Nitrogen 29 mg/dL (6-20); Calcium 8.7 mg/dL (8.6-10.3); Carbon Dioxide 28 mEq/L (23-29); Chloride 97 mEq/L (98-107); Globulin 4.2 g/dL (2.4-3.5); Glucose 107 mg/dL (70-105); Magnesium 1.7 mg/dL (1.6-2.6); Osmolality,Calculated 284 (280-300); Phosphorous 2.8 mg/dL (2.7-4.5); Potassium 4.2 mEq/L (3.5-5.1); Sodium 134 mEq/L (136-145); Total Protein 7.2 g/dL (6.4-8.9); eGFR For African Americans > 60 (> 60); eGFR For Non-African Americans > 60 (> 60)
[2020-07-22] MEDS: Calcium Gluconate 1gm/50mL 1 GM/50 ML BAG IVPB PRN (05:09)
[2020-07-22] MEDS: PARoxetine 20 MG TABLET PO SCH (08:13)
[2020-07-22] MEDS: Dexamethasone Sodium Phos/PF 10 MG/ML VIAL IVP SCH (08:13)
[2020-07-22] MEDS: *HR* Enoxaparin 40 MG/0.4 ML SYRINGE SQ SCH ×2 (08:14→20:26)
[2020-07-22] MEDS: Insulin LISPRO 300 UNITS/3 ML VIAL SUBQ SCH ×4 (08:40→20:26)
[2020-07-22] MEDS: Insulin DETEMIR 100 UNIT/ML X5UNITS SUBQ SCH ×2 (08:40→20:26)
[2020-07-22 11:29] LABS: QuantiFERON NIL 0.01 IU/mL; QuantiFERON-TB Gold In-Tube NEGATIVE (Negative)
[2020-07-22] MEDS ORDERED: Furosemide 40 MG/4 ML VIAL IVP ONE (11:34)
[2020-07-23] MEDS: Cefepime HCl 2,000 MG in 0.9 % Sodium Chloride Mini Bag 100 ML IVPB SCH ×3 (02:29→17:59)
[2020-07-23 05:49] LABS: Basophils % 0.3 %; Eosinophils # 0.2 K/mcL (0.0-0.6); Eosinophils % 1.5 %; Hematocrit 44.3 % (37.5-50.1); Hemoglobin 15.3 g/dL (12.9-16.9); Immature Granulocytes % 1.8 % (0-4); Lymphocytes # 0.8 K/mcL (0.6-4.6); Lymphocytes % 5.1 %; Mean Corpuscular HGB Conc 34.5 g/dL (31.6-35.5); Mean Corpuscular Hemoglobin 32.8 pg (28.0-33.3); Mean Corpuscular Volume 94.9 fL (83.0-100.0); Mean Platelet Volume 9.8 fL (9.4-12.4); Monocytes # 0.2 K/mcL (0.0-1.3); Monocytes % 1.3 %; Neutrophils # 13.4 K/mcL (1.6-8.9); Platelet Count 419 K/mcL (140-400); Red Blood Count 4.67 M/mcL (4.19-5.50); Red Cell Distribution Width 12.9 % (11.5-14.5); White Blood Count 14.8 K/mcL (4.3-11.1)
[2020-07-23 06:00] LABS: Albumin/Globulin Ratio 0.6 (1.1-2.2); Bilirubin,Direct 0.1 mg/dL (0.0-0.2); Bilirubin,Indirect 0.7 mg/dL (0.0-1.0); Bilirubin,Total 0.8 mg/dL (0.3-1.0); Globulin 4.7 g/dL (2.4-3.5); Phosphorous 3.2 mg/dL (2.7-4.5); Total Protein 7.7 g/dL (6.4-8.9)
[2020-07-23 06:10] LABS: BUN/Creatinine Ratio 41 (6-26); Blood Urea Nitrogen 29 mg/dL (6-20); Carbon Dioxide 26 mEq/L (23-29); Chloride 92 mEq/L (98-107); Glucose 104 mg/dL (70-105); Osmolality,Calculated 274 (280-300); Potassium 4.1 mEq/L (3.5-5.1); Sodium 129 mEq/L (136-145); eGFR For African Americans > 60 (> 60); eGFR For Non-African Americans > 60 (> 60)
[2020-07-23] MEDS: Dexmedetomidine HCl 400 MCG/100 ML MLS IVC SCH ×2 (06:14→22:46)
[2020-07-23] MEDS: PARoxetine 20 MG TABLET PO SCH (08:48)
[2020-07-23] MEDS: *HR* Enoxaparin 40 MG/0.4 ML SYRINGE SQ SCH ×2 (08:48→19:59)
[2020-07-23] MEDS: Dexamethasone Sodium Phos/PF 10 MG/ML VIAL IVP SCH (08:55)
[2020-07-23] MEDS: Insulin DETEMIR 100 UNIT/ML X5UNITS SUBQ SCH ×2 (08:55→19:59)
[2020-07-23] MEDS: Insulin LISPRO 300 UNITS/3 ML VIAL SUBQ SCH ×4 (09:50→20:00)
[2020-07-24] MEDS: Cefepime HCl 2,000 MG in 0.9 % Sodium Chloride Mini Bag 100 ML IVPB SCH ×2 (02:19→08:32)
[2020-07-24 04:33] LABS: Basophils # 0.1 K/mcL (0.0-0.2); Basophils % 0.4 %; Eosinophils # 0.1 K/mcL (0.0-0.6); Eosinophils % 0.5 %; Hematocrit 44.7 % (37.5-50.1); Hemoglobin 15.1 g/dL (12.9-16.9); Immature Granulocytes % 2.2 % (0-4); Lymphocytes # 0.9 K/mcL (0.6-4.6); Lymphocytes % 4.9 %; Mean Corpuscular HGB Conc 33.8 g/dL (31.6-35.5); Mean Corpuscular Hemoglobin 31.9 pg (28.0-33.3); Mean Corpuscular Volume 94.3 fL (83.0-100.0); Mean Platelet Volume 9.8 fL (9.4-12.4); Monocytes # 0.4 K/mcL (0.0-1.3); Monocytes % 1.9 %; Neutrophils # 16.6 K/mcL (1.6-8.9); Platelet Count 381 K/mcL (140-400); Red Blood Count 4.74 M/mcL (4.19-5.50); Red Cell Distribution Width 12.7 % (11.5-14.5); Segmented Neutrophils % 90.1 %; White Blood Count 18.5 K/mcL (4.3-11.1)
[2020-07-24 04:51] LABS: Albumin 2.9 g/dL (3.5-5.7); Albumin/Globulin Ratio 0.7 (1.1-2.2); Bilirubin,Direct 0.2 mg/dL (0.0-0.2); Bilirubin,Indirect 0.6 mg/dL (0.0-1.0); Bilirubin,Total 0.8 mg/dL (0.3-1.0); Globulin 4.3 g/dL (2.4-3.5); Phosphorous 3.7 mg/dL (2.7-4.5); Total Protein 7.2 g/dL (6.4-8.9)
[2020-07-24 04:52] LABS: BUN/Creatinine Ratio 35 (6-26); Blood Urea Nitrogen 20 mg/dL (6-20); Calcium 8.8 mg/dL (8.6-10.3); Carbon Dioxide 28 mEq/L (23-29); Chloride 94 mEq/L (98-107); Glucose 77 mg/dL (70-105); Magnesium 1.9 mg/dL (1.6-2.6); Osmolality,Calculated 271 (280-300); Potassium 4.6 mEq/L (3.5-5.1); Sodium 130 mEq/L (136-145); eGFR For African Americans > 60 (> 60); eGFR For Non-African Americans > 60 (> 60)
[2020-07-24] MEDS: Dexmedetomidine HCl 400 MCG/100 ML MLS IVC SCH (05:24)
[2020-07-24] MEDS: Dexamethasone Sodium Phos/PF 10 MG/ML VIAL IVP SCH (08:33)
[2020-07-24] MEDS: *HR* Enoxaparin 40 MG/0.4 ML SYRINGE SQ SCH (08:33)
[2020-07-24] MEDS: PARoxetine 20 MG TABLET PO SCH (08:34)
[2020-07-24] MEDS: Insulin DETEMIR 100 UNIT/ML X5UNITS SUBQ SCH ×2 (09:19→20:32)
[2020-07-24] MEDS: Insulin LISPRO 300 UNITS/3 ML VIAL SUBQ SCH ×4 (09:19→20:30)
[2020-07-24] MEDS ORDERED: Furosemide 40 MG/4 ML VIAL IVP ONE (09:23)
[2020-07-24] MEDS ORDERED: Dextrose Gel 15 GM/37.5 ML TUBE PO PRN ×2 (18:05)
[2020-07-24] MEDS ORDERED: Naloxone 0.4 MG/ML INJ IVP PRN (18:05)
[2020-07-24] MEDS ORDERED: Ondansetron 4 MG/2 ML VIAL IVP PRN (18:05)
[2020-07-24] MEDS ORDERED: Melatonin 3 MG TABLET PO PRN (18:05)
[2020-07-24] MEDS ORDERED: *HR* Dextrose 50 % in Water (Vial) 50 ML VIAL IVP PRN (18:05)
[2020-07-24] MEDS ORDERED: Nicotine 2 MG GUM BC PRN (18:05)
[2020-07-24] MEDS ORDERED: Chloraseptic Spray 177 ML BOTTLE MM PRN (18:05)
[2020-07-24] MEDS ORDERED: Nicotine 14 MG PATCH.TD24 TD PRN (18:05)
[2020-07-24] MEDS ORDERED: D5% in Water 1,000 ML IVC PRN (18:05)
[2020-07-25] MEDS: *HR* Enoxaparin 40 MG/0.4 ML SYRINGE SQ SCH ×3 (01:22→20:22)
[2020-07-25] MEDS: Cefepime HCl 2,000 MG in 0.9 % Sodium Chloride Mini Bag 100 ML IVPB SCH ×4 (01:22→17:44)
[2020-07-25] MEDS ORDERED: Melatonin 3 MG TABLET PO ONE (01:32)
[2020-07-25 06:26] LABS: Basophils # 0.1 K/mcL (0.0-0.2); Basophils % 0.3 %; Eosinophils # 0.1 K/mcL (0.0-0.6); Eosinophils % 0.5 %; Hematocrit 44.2 % (37.5-50.1); Hemoglobin 15.4 g/dL (12.9-16.9); Immature Granulocytes % 2.6 % (0-4); Lymphocytes # 1.3 K/mcL (0.6-4.6); Lymphocytes % 6.1 %; Mean Corpuscular HGB Conc 34.8 g/dL (31.6-35.5); Mean Corpuscular Hemoglobin 32.6 pg (28.0-33.3); Mean Corpuscular Volume 93.6 fL (83.0-100.0); Mean Platelet Volume 9.5 fL (9.4-12.4); Monocytes # 0.5 K/mcL (0.0-1.3); Monocytes % 2.4 %; Neutrophils # 18.1 K/mcL (1.6-8.9); Platelet Count 350 K/mcL (140-400); Red Blood Count 4.72 M/mcL (4.19-5.50); Red Cell Distribution Width 12.6 % (11.5-14.5); Segmented Neutrophils % 88.1 %; White Blood Count 20.5 K/mcL (4.3-11.1)
[2020-07-25 06:46] LABS: Albumin/Globulin Ratio 0.7 (1.1-2.2); Bilirubin,Direct 0.2 mg/dL (0.0-0.2); Bilirubin,Indirect 0.6 mg/dL (0.0-1.0); Bilirubin,Total 0.8 mg/dL (0.3-1.0); Globulin 4.3 g/dL (2.4-3.5); Phosphorous 4.1 mg/dL (2.7-4.5); Total Protein 7.3 g/dL (6.4-8.9)
[2020-07-25 06:47] LABS: Alanine Aminotransferase 24 Units/L (7-52); Albumin/Globulin Ratio 0.7 (1.1-2.2); Alkaline Phosphatase 70 Units/L (34-104); Aspartate Amino Transferase 43 Units/L (13-39); BUN/Creatinine Ratio 38 (6-26); Bilirubin,Total 0.8 mg/dL (0.3-1.0); Blood Urea Nitrogen 26 mg/dL (6-20); Calcium 8.9 mg/dL (8.6-10.3); Carbon Dioxide 32 mEq/L (23-29); Chloride 88 mEq/L (98-107); Globulin 4.3 g/dL (2.4-3.5); Glucose 164 mg/dL (70-105); Magnesium 1.9 mg/dL (1.6-2.6); Osmolality,Calculated 272 (280-300); Potassium 4.5 mEq/L (3.5-5.1); Sodium 127 mEq/L (136-145); Total Protein 7.3 g/dL (6.4-8.9); eGFR For African Americans > 60 (> 60); eGFR For Non-African Americans > 60 (> 60)
[2020-07-25] MEDS: Dexmedetomidine HCl 400 MCG/100 ML MLS IVC SCH ×2 (07:08→07:59)
[2020-07-25] MEDS: Insulin LISPRO 300 UNITS/3 ML VIAL SUBQ SCH ×4 (07:58→19:40)
[2020-07-25] MEDS: PARoxetine 20 MG TABLET PO SCH (07:59)
[2020-07-25] MEDS: Insulin DETEMIR 100 UNIT/ML X5UNITS SUBQ SCH ×2 (07:59→20:06)
[2020-07-25] MEDS: Dexamethasone Sodium Phos/PF 10 MG/ML VIAL IVP SCH (09:47)
[2020-07-25] MEDS: Melatonin 3 MG TABLET PO PRN (20:21)
[2020-07-26] MEDS: Cefepime HCl 2,000 MG in 0.9 % Sodium Chloride Mini Bag 100 ML IVPB SCH ×3 (00:31→16:57)
[2020-07-26] MEDS: Insulin LISPRO 300 UNITS/3 ML VIAL SUBQ SCH ×4 (07:09→20:10)
[2020-07-26] MEDS: Dexamethasone Sodium Phos/PF 10 MG/ML VIAL IVP SCH (09:39)
[2020-07-26] MEDS: Insulin DETEMIR 100 UNIT/ML X5UNITS SUBQ SCH ×2 (09:39→20:11)
[2020-07-26] MEDS: PARoxetine 20 MG TABLET PO SCH (09:39)
[2020-07-26] MEDS: *HR* Enoxaparin 40 MG/0.4 ML SYRINGE SQ SCH ×2 (09:40→20:22)
[2020-07-26] MEDS: Melatonin 3 MG TABLET PO PRN (20:11)
[2020-07-27] MEDS: Cefepime HCl 2,000 MG in 0.9 % Sodium Chloride Mini Bag 100 ML IVPB SCH ×3 (00:23→17:28)
[2020-07-27 06:31] LABS: Hematocrit 44.3 % (37.5-50.1); Hemoglobin 15.1 g/dL (12.9-16.9); Mean Corpuscular HGB Conc 34.1 g/dL (31.6-35.5); Mean Corpuscular Hemoglobin 32.1 pg (28.0-33.3); Mean Corpuscular Volume 94.3 fL (83.0-100.0); Mean Platelet Volume 9.8 fL (9.4-12.4); Platelet Count 283 K/mcL (140-400); Red Cell Distribution Width 12.6 % (11.5-14.5); White Blood Count 20.9 K/mcL (4.3-11.1)
[2020-07-27 06:46] LABS: BUN/Creatinine Ratio 33 (6-26); Blood Urea Nitrogen 19 mg/dL (6-20); Calcium 8.9 mg/dL (8.6-10.3); Carbon Dioxide 31 mEq/L (23-29); Chloride 92 mEq/L (98-107); Glucose 222 mg/dL (70-105); Magnesium 1.7 mg/dL (1.6-2.6); Osmolality,Calculated 277 (280-300); Potassium 4.4 mEq/L (3.5-5.1); Sodium 129 mEq/L (136-145); eGFR For African Americans > 60 (> 60); eGFR For Non-African Americans > 60 (> 60)
[2020-07-27] MEDS: Insulin LISPRO 300 UNITS/3 ML VIAL SUBQ SCH ×4 (07:37→19:55)
[2020-07-27] MEDS: Dexamethasone Sodium Phos/PF 10 MG/ML VIAL IVP SCH (07:38)
[2020-07-27] MEDS: Insulin DETEMIR 100 UNIT/ML X5UNITS SUBQ SCH ×2 (07:38→19:54)
[2020-07-27] MEDS: PARoxetine 20 MG TABLET PO SCH (07:39)
[2020-07-27] MEDS: *HR* Enoxaparin 40 MG/0.4 ML SYRINGE SQ SCH ×2 (07:39→19:54)
[2020-07-27] MEDS: Melatonin 3 MG TABLET PO PRN (22:09)
[2020-07-28] MEDS: Cefepime HCl 2,000 MG in 0.9 % Sodium Chloride Mini Bag 100 ML IVPB SCH (01:33)
[2020-07-28] MEDS: PARoxetine 20 MG TABLET PO SCH (09:10)
[2020-07-28] MEDS: Insulin LISPRO 300 UNITS/3 ML VIAL SUBQ SCH ×4 (09:10→19:31)
[2020-07-28] MEDS: Dexamethasone Sodium Phos/PF 10 MG/ML VIAL IVP SCH (09:14)
[2020-07-28] MEDS: Insulin DETEMIR 100 UNIT/ML X5UNITS SUBQ SCH ×2 (09:17→19:31)
[2020-07-28] MEDS: *HR* Enoxaparin 40 MG/0.4 ML SYRINGE SQ SCH ×2 (09:17→19:30)
[2020-07-28] MEDS: Melatonin 3 MG TABLET PO PRN (21:46)
[2020-07-29 04:06] LABS: Hematocrit 42.3 % (37.5-50.1); Hemoglobin 14.5 g/dL (12.9-16.9); Mean Corpuscular HGB Conc 34.3 g/dL (31.6-35.5); Mean Corpuscular Hemoglobin 32.7 pg (28.0-33.3); Mean Corpuscular Volume 95.3 fL (83.0-100.0); Mean Platelet Volume 9.7 fL (9.4-12.4); Platelet Count 313 K/mcL (140-400); Red Blood Count 4.44 M/mcL (4.19-5.50); Red Cell Distribution Width 12.8 % (11.5-14.5); White Blood Count 19.3 K/mcL (4.3-11.1)
[2020-07-29 04:17] LABS: INR 1.3; Prothrombin Time 15.1 Seconds (9.4-12.1)
[2020-07-29 04:25] LABS: BUN/Creatinine Ratio 25 (6-26); Blood Urea Nitrogen 13 mg/dL (6-20); Calcium 9.1 mg/dL (8.6-10.3); Carbon Dioxide 34 mEq/L (23-29); Chloride 91 mEq/L (98-107); Glucose 110 mg/dL (70-105); Magnesium 1.6 mg/dL (1.6-2.6); Osmolality,Calculated 269 (280-300); Potassium 4.5 mEq/L (3.5-5.1); Sodium 129 mEq/L (136-145); eGFR For African Americans > 60 (> 60); eGFR For Non-African Americans > 60 (> 60)
[2020-07-29 05:47] LABS: ABG Base Excess 5 mEq/L (-2 to 3); ABG HCO3 29 mEq/L (21-27); ABG Oxygen Saturation 91 % (95-98); ABG PCO2 43 mmHg (35-45); ABG PH 7.44 pH Units (7.32-7.45); ABG PO2 59 mmHg (85-104); ABG TCO2 31 mEq/L (20-26)
[2020-07-29 08:04] LABS: ABG Base Excess 5 mEq/L (-2 to 3); ABG HCO3 29 mEq/L (21-27); ABG Oxygen Saturation 93 % (95-98); ABG PCO2 43 mmHg (35-45); ABG PH 7.44 pH Units (7.32-7.45); ABG PO2 65 mmHg (85-104); ABG TCO2 31 mEq/L (20-26)
[2020-07-29] MEDS: *HR* Enoxaparin 40 MG/0.4 ML SYRINGE SQ SCH ×2 (08:47→20:38)
[2020-07-29] MEDS: PARoxetine 20 MG TABLET PO SCH (08:49)
[2020-07-29] MEDS: Insulin LISPRO 300 UNITS/3 ML VIAL SUBQ SCH ×4 (08:51→20:38)
[2020-07-29] MEDS: Dexamethasone Sodium Phos/PF 10 MG/ML VIAL IVP SCH (09:04)
[2020-07-29] MEDS: Insulin DETEMIR 100 UNIT/ML X5UNITS SUBQ SCH ×2 (09:04→20:37)
[2020-07-29] MEDS ORDERED: Furosemide 20 MG/2 ML VIAL IVP ONE ×2 (09:15→17:00)
[2020-07-29] MEDS: Melatonin 3 MG TABLET PO PRN (23:35)
[2020-07-30 04:31] LABS: Hematocrit 42.5 % (37.5-50.1); Hemoglobin 14.1 g/dL (12.9-16.9); Mean Corpuscular HGB Conc 33.2 g/dL (31.6-35.5); Mean Corpuscular Hemoglobin 31.5 pg (28.0-33.3); Mean Corpuscular Volume 95.1 fL (83.0-100.0); Mean Platelet Volume 9.9 fL (9.4-12.4); Platelet Count 316 K/mcL (140-400); Red Blood Count 4.47 M/mcL (4.19-5.50); White Blood Count 20.4 K/mcL (4.3-11.1)
[2020-07-30 04:43] LABS: BUN/Creatinine Ratio 27 (6-26); Blood Urea Nitrogen 16 mg/dL (6-20); Calcium 9.7 mg/dL (8.6-10.3); Carbon Dioxide 37 mEq/L (23-29); Chloride 87 mEq/L (98-107); Glucose 112 mg/dL (70-105); Magnesium 1.8 mg/dL (1.6-2.6); Osmolality,Calculated 274 (280-300); Potassium 4.2 mEq/L (3.5-5.1); Sodium 131 mEq/L (136-145); eGFR For African Americans > 60 (> 60); eGFR For Non-African Americans > 60 (> 60)
[2020-07-30] MEDS: Insulin DETEMIR 100 UNIT/ML X5UNITS SUBQ SCH ×2 (09:08→21:32)
[2020-07-30] MEDS: *HR* Enoxaparin 40 MG/0.4 ML SYRINGE SQ SCH ×2 (09:08→21:33)
[2020-07-30] MEDS: Dexamethasone Sodium Phos/PF 10 MG/ML VIAL IVP SCH (09:08)
[2020-07-30] MEDS: PARoxetine 20 MG TABLET PO SCH (09:08)
[2020-07-30] MEDS: Insulin LISPRO 300 UNITS/3 ML VIAL SUBQ SCH ×4 (09:09→21:32)
[2020-07-30] MEDS: Melatonin 3 MG TABLET PO PRN (21:34)
[2020-07-31] MEDS: Insulin LISPRO 300 UNITS/3 ML VIAL SUBQ SCH ×4 (08:26→21:13)
[2020-07-31] MEDS: Dexamethasone Sodium Phos/PF 10 MG/ML VIAL IVP SCH (08:27)
[2020-07-31] MEDS: Insulin DETEMIR 100 UNIT/ML X5UNITS SUBQ SCH ×2 (08:28→21:14)
[2020-07-31] MEDS: PARoxetine 20 MG TABLET PO SCH (08:29)
[2020-07-31] MEDS: *HR* Enoxaparin 40 MG/0.4 ML SYRINGE SQ SCH ×2 (08:29→21:14)
[2020-07-31] MEDS ORDERED: Ondansetron ODT 4 MG TAB.RAPDIS SL ONE (20:59)
[2020-07-31] MEDS: Melatonin 3 MG TABLET PO PRN (21:12)
[2020-08-01 07:05] LABS: Hemoglobin 13.7 g/dL (12.9-16.9); Mean Corpuscular HGB Conc 33.4 g/dL (31.6-35.5); Mean Corpuscular Volume 95.8 fL (83.0-100.0); Mean Platelet Volume 9.7 fL (9.4-12.4); Platelet Count 299 K/mcL (140-400); Red Blood Count 4.28 M/mcL (4.19-5.50); White Blood Count 17.1 K/mcL (4.3-11.1)
[2020-08-01 07:27] LABS: BUN/Creatinine Ratio 29 (6-26); Blood Urea Nitrogen 14 mg/dL (6-20); Carbon Dioxide 34 mEq/L (23-29); Chloride 87 mEq/L (98-107); Glucose 182 mg/dL (70-105); Magnesium 1.5 mg/dL (1.6-2.6); Osmolality,Calculated 273 (280-300); Potassium 4.4 mEq/L (3.5-5.1); Sodium 129 mEq/L (136-145); eGFR For African Americans > 60 (> 60); eGFR For Non-African Americans > 60 (> 60)
[2020-08-01] MEDS: Dexamethasone Sodium Phos/PF 10 MG/ML VIAL IVP SCH (08:32)
[2020-08-01] MEDS: Insulin DETEMIR 100 UNIT/ML X5UNITS SUBQ SCH ×2 (08:33→21:33)
[2020-08-01] MEDS: *HR* Enoxaparin 40 MG/0.4 ML SYRINGE SQ SCH ×2 (08:33→21:34)
[2020-08-01] MEDS: Insulin LISPRO 300 UNITS/3 ML VIAL SUBQ SCH ×4 (08:34→21:34)
[2020-08-01] MEDS: PARoxetine 20 MG TABLET PO SCH (08:34)
[2020-08-01] MEDS ORDERED: Furosemide 20 MG/2 ML VIAL IVP ONE (10:30)
[2020-08-02] MEDS: Melatonin 3 MG TABLET PO PRN ×2 (03:29→20:38)
[2020-08-02 03:48] LABS: Hemoglobin 14.1 g/dL (12.9-16.9); Mean Corpuscular HGB Conc 33.6 g/dL (31.6-35.5); Mean Corpuscular Hemoglobin 32.3 pg (28.0-33.3); Mean Corpuscular Volume 96.1 fL (83.0-100.0); Mean Platelet Volume 9.5 fL (9.4-12.4); Platelet Count 317 K/mcL (140-400); Red Blood Count 4.37 M/mcL (4.19-5.50); White Blood Count 19.5 K/mcL (4.3-11.1)
[2020-08-02 03:59] LABS: BUN/Creatinine Ratio 19 (6-26); Blood Urea Nitrogen 13 mg/dL (6-20); Calcium 9.3 mg/dL (8.6-10.3); Carbon Dioxide 37 mEq/L (23-29); Chloride 84 mEq/L (98-107); Glucose 158 mg/dL (70-105); Magnesium 1.8 mg/dL (1.6-2.6); Osmolality,Calculated 271 (280-300); Sodium 129 mEq/L (136-145); eGFR For African Americans > 60 (> 60); eGFR For Non-African Americans > 60 (> 60)
[2020-08-02] MEDS: *HR* Enoxaparin 40 MG/0.4 ML SYRINGE SQ SCH ×2 (09:10→20:17)
[2020-08-02] MEDS: Insulin DETEMIR 100 UNIT/ML X5UNITS SUBQ SCH ×2 (09:10→20:17)
[2020-08-02] MEDS: Insulin LISPRO 300 UNITS/3 ML VIAL SUBQ SCH ×4 (09:18→20:02)
[2020-08-02] MEDS: PARoxetine 20 MG TABLET PO SCH (09:20)
[2020-08-02] MEDS ORDERED: Isovue-370 500 ML BOTTLE IVP ONE (09:27)
[2020-08-02] MEDS ORDERED: Furosemide 20 MG/2 ML VIAL IVP ONE (11:50)
[2020-08-02] MEDS: Furosemide 20 MG/2 ML VIAL IVP SCH (16:19)
[2020-08-03 04:56] LABS: BUN/Creatinine Ratio 31 (6-26); Blood Urea Nitrogen 18 mg/dL (6-20); Carbon Dioxide 34 mEq/L (23-29); Chloride 87 mEq/L (98-107); Glucose 236 mg/dL (70-105); Osmolality,Calculated 278 (280-300); Potassium 4.5 mEq/L (3.5-5.1); Sodium 129 mEq/L (136-145); eGFR For African Americans > 60 (> 60); eGFR For Non-African Americans > 60 (> 60)
[2020-08-03] MEDS: dexAMETHasone 4 MG TABLET PO SCH (08:12)
[2020-08-03] MEDS: Furosemide 20 MG/2 ML VIAL IVP SCH ×2 (08:12→18:01)
[2020-08-03] MEDS: PARoxetine 20 MG TABLET PO SCH (08:13)
[2020-08-03] MEDS: *HR* Enoxaparin 40 MG/0.4 ML SYRINGE SQ SCH ×2 (08:15→20:00)
[2020-08-03] MEDS: Insulin DETEMIR 100 UNIT/ML X5UNITS SUBQ SCH ×2 (08:17→20:00)
[2020-08-03] MEDS: Doxycycline 100 MG in 0.9 % Sodium Chloride Mini Bag 100 ML IVPB SCH ×2 (08:17→18:00)
[2020-08-03] MEDS: Insulin LISPRO 300 UNITS/3 ML VIAL SUBQ SCH ×4 (08:52→19:59)
[2020-08-03] MEDS: Melatonin 3 MG TABLET PO PRN (22:32)
[2020-08-04] MEDS: Doxycycline 100 MG in 0.9 % Sodium Chloride Mini Bag 100 ML IVPB SCH ×2 (04:55→17:03)
[2020-08-04] MEDS: *HR* Enoxaparin 40 MG/0.4 ML SYRINGE SQ SCH ×2 (08:25→21:12)
[2020-08-04] MEDS: PARoxetine 20 MG TABLET PO SCH (08:25)
[2020-08-04] MEDS: dexAMETHasone 4 MG TABLET PO SCH (08:25)
[2020-08-04] MEDS: Insulin DETEMIR 100 UNIT/ML X5UNITS SUBQ SCH ×2 (08:27→21:12)
[2020-08-04] MEDS: Furosemide 20 MG/2 ML VIAL IVP SCH ×2 (08:28→16:10)
[2020-08-04] MEDS: Insulin LISPRO 300 UNITS/3 ML VIAL SUBQ SCH ×4 (08:29→21:12)
[2020-08-04 11:04] LABS: Basophils % 0.1 %; Eosinophils # 0.1 K/mcL (0.0-0.6); Eosinophils % 0.5 %; Hematocrit 37.7 % (37.5-50.1); Immature Granulocytes % 1.4 % (0-4); Lymphocytes # 0.8 K/mcL (0.6-4.6); Lymphocytes % 3.7 %; Mean Corpuscular HGB Conc 32.6 g/dL (31.6-35.5); Mean Corpuscular Hemoglobin 31.5 pg (28.0-33.3); Mean Corpuscular Volume 96.7 fL (83.0-100.0); Mean Platelet Volume 10.1 fL (9.4-12.4); Monocytes # 0.7 K/mcL (0.0-1.3); Neutrophils # 19.6 K/mcL (1.6-8.9); Platelet Count 294 K/mcL (140-400); Red Cell Distribution Width 12.8 % (11.5-14.5); Segmented Neutrophils % 91.3 %; White Blood Count 21.5 K/mcL (4.3-11.1)
[2020-08-04 11:10] LABS: Hemoglobin 12.3 g/dL (12.9-16.9)
[2020-08-04 11:32] LABS: BUN/Creatinine Ratio 37 (6-26); Blood Urea Nitrogen 26 mg/dL (6-20); Carbon Dioxide 40 mEq/L (23-29); Chloride 80 mEq/L (98-107); Glucose 385 mg/dL (70-105); Osmolality,Calculated 287 (280-300); Sodium 128 mEq/L (136-145); eGFR For African Americans > 60 (> 60); eGFR For Non-African Americans > 60 (> 60)
[2020-08-04] MEDS ORDERED: Insulin Human Regular 10 UNIT in 0.9 % Sodium Chloride 10 ML IV ONE (12:28)
[2020-08-04 13:32] LABS: VBG HCO3 42 mEq/L (21-27); VBG PCO2 74 mmHg (41-51); VBG PH 7.37 pH Units (7.32-7.42); VBG PO2 50 mmHg (25-50)
[2020-08-04] MEDS: Famotidine 20 MG TABLET PO SCH ×2 (16:10→21:12)
[2020-08-04] MEDS: Melatonin 3 MG TABLET PO PRN (21:23)
[2020-08-05] MEDS: Doxycycline 100 MG in 0.9 % Sodium Chloride Mini Bag 100 ML IVPB SCH ×2 (05:08→16:53)
[2020-08-05 07:05] LABS: Hematocrit 37.5 % (37.5-50.1); Hemoglobin 12.6 g/dL (12.9-16.9); Mean Corpuscular HGB Conc 33.6 g/dL (31.6-35.5); Mean Corpuscular Hemoglobin 32.1 pg (28.0-33.3); Mean Corpuscular Volume 95.4 fL (83.0-100.0); Mean Platelet Volume 9.6 fL (9.4-12.4); Platelet Count 297 K/mcL (140-400); Red Blood Count 3.93 M/mcL (4.19-5.50); Red Cell Distribution Width 12.7 % (11.5-14.5)
[2020-08-05 07:32] LABS: BUN/Creatinine Ratio 42 (6-26); Blood Urea Nitrogen 27 mg/dL (6-20); Calcium 9.4 mg/dL (8.6-10.3); Carbon Dioxide 40 mEq/L (23-29); Chloride 87 mEq/L (98-107); Glucose 112 mg/dL (70-105); Osmolality,Calculated 282 (280-300); Potassium 4.3 mEq/L (3.5-5.1); Sodium 133 mEq/L (136-145); eGFR For African Americans > 60 (> 60); eGFR For Non-African Americans > 60 (> 60)
[2020-08-05 08:03] LABS: VBG HCO3 42 mEq/L (21-27); VBG PCO2 68 mmHg (41-51); VBG PH 7.39 pH Units (7.32-7.42); VBG PO2 31 mmHg (25-50)
[2020-08-05] MEDS: Famotidine 20 MG TABLET PO SCH ×2 (09:05→20:49)
[2020-08-05] MEDS: PARoxetine 20 MG TABLET PO SCH (09:05)
[2020-08-05] MEDS: Furosemide 20 MG/2 ML VIAL IVP SCH ×2 (09:06→16:52)
[2020-08-05] MEDS: dexAMETHasone 4 MG TABLET PO SCH (09:06)
[2020-08-05] MEDS: *HR* Enoxaparin 40 MG/0.4 ML SYRINGE SQ SCH ×2 (09:06→20:49)
[2020-08-05] MEDS: Insulin DETEMIR 100 UNIT/ML X5UNITS SUBQ SCH ×2 (09:08→20:49)
[2020-08-05] MEDS: Insulin LISPRO 300 UNITS/3 ML VIAL SUBQ SCH ×4 (09:41→21:17)
[2020-08-05] MEDS: Melatonin 3 MG TABLET PO PRN (20:50)
[2020-08-06] MEDS: Doxycycline 100 MG in 0.9 % Sodium Chloride Mini Bag 100 ML IVPB SCH ×2 (05:34→17:44)
[2020-08-06] MEDS: Insulin LISPRO 300 UNITS/3 ML VIAL SUBQ SCH ×6 (08:47→21:44)
[2020-08-06] MEDS: Famotidine 20 MG TABLET PO SCH ×2 (08:49→21:11)
[2020-08-06] MEDS: Furosemide 20 MG/2 ML VIAL IVP SCH ×2 (08:49→17:44)
[2020-08-06] MEDS: *HR* Enoxaparin 40 MG/0.4 ML SYRINGE SQ SCH ×2 (08:49→21:11)
[2020-08-06] MEDS: PARoxetine 20 MG TABLET PO SCH (08:50)
[2020-08-06] MEDS: dexAMETHasone 4 MG TABLET PO SCH (08:50)
[2020-08-06] MEDS: Insulin DETEMIR 100 UNIT/ML X5UNITS SUBQ SCH ×2 (08:50→21:14)
[2020-08-06 09:38] LABS: Basophils % 0.2 %; Eosinophils # 0.5 K/mcL (0.0-0.6); Eosinophils % 2.9 %; Hemoglobin 13.1 g/dL (12.9-16.9); Immature Granulocytes % 1.7 % (0-4); Lymphocytes # 1.4 K/mcL (0.6-4.6); Lymphocytes % 8.9 %; Mean Corpuscular HGB Conc 32.8 g/dL (31.6-35.5); Mean Corpuscular Hemoglobin 31.6 pg (28.0-33.3); Mean Corpuscular Volume 96.6 fL (83.0-100.0); Mean Platelet Volume 9.7 fL (9.4-12.4); Monocytes # 0.5 K/mcL (0.0-1.3); Monocytes % 3.1 %; Neutrophils # 13.3 K/mcL (1.6-8.9); Platelet Count 333 K/mcL (140-400); Red Blood Count 4.14 M/mcL (4.19-5.50); Red Cell Distribution Width 12.8 % (11.5-14.5); Segmented Neutrophils % 83.2 %
[2020-08-06 09:54] LABS: VBG HCO3 43 mEq/L (21-27); VBG PCO2 74 mmHg (41-51); VBG PH 7.37 pH Units (7.32-7.42); VBG PO2 46 mmHg (25-50)
[2020-08-06 09:58] LABS: BUN/Creatinine Ratio 35 (6-26); Blood Urea Nitrogen 24 mg/dL (6-20); Calcium 9.2 mg/dL (8.6-10.3); Carbon Dioxide 41 mEq/L (23-29); Chloride 84 mEq/L (98-107); Glucose 172 mg/dL (70-105); Osmolality,Calculated 282 (280-300); Potassium 3.5 mEq/L (3.5-5.1); Sodium 132 mEq/L (136-145); eGFR For African Americans > 60 (> 60); eGFR For Non-African Americans > 60 (> 60)
[2020-08-06] MEDS: Lidocaine Viscous Oral Soln 15 ML SOLUTION MM SCH ×3 (13:14→21:10)
[2020-08-06] MEDS: Melatonin 3 MG TABLET PO PRN (21:10)
[2020-08-07] MEDS: Doxycycline 100 MG in 0.9 % Sodium Chloride Mini Bag 100 ML IVPB SCH (05:02)
[2020-08-07 05:48] LABS: Hematocrit 36.3 % (37.5-50.1); Hemoglobin 12.2 g/dL (12.9-16.9); Mean Corpuscular HGB Conc 33.6 g/dL (31.6-35.5); Mean Corpuscular Hemoglobin 31.9 pg (28.0-33.3); Mean Platelet Volume 9.8 fL (9.4-12.4); Platelet Count 316 K/mcL (140-400); Red Blood Count 3.82 M/mcL (4.19-5.50); Red Cell Distribution Width 12.8 % (11.5-14.5); White Blood Count 13.2 K/mcL (4.3-11.1)
[2020-08-07 05:51] LABS: VBG HCO3 38 mEq/L (21-27); VBG PCO2 61 mmHg (41-51); VBG PO2 110 mmHg (25-50)
[2020-08-07 06:10] LABS: BUN/Creatinine Ratio 44 (6-26); Blood Urea Nitrogen 24 mg/dL (6-20); Calcium 9.2 mg/dL (8.6-10.3); Carbon Dioxide 38 mEq/L (23-29); Chloride 87 mEq/L (98-107); Glucose 162 mg/dL (70-105); Magnesium 1.8 mg/dL (1.6-2.6); Osmolality,Calculated 282 (280-300); Sodium 132 mEq/L (136-145); eGFR For African Americans > 60 (> 60); eGFR For Non-African Americans > 60 (> 60)
[2020-08-07] MEDS: dexAMETHasone 4 MG TABLET PO SCH (07:33)
[2020-08-07] MEDS: Famotidine 20 MG TABLET PO SCH ×2 (07:33→21:29)
[2020-08-07] MEDS: PARoxetine 20 MG TABLET PO SCH (07:33)
[2020-08-07] MEDS: Lidocaine Viscous Oral Soln 15 ML SOLUTION MM SCH ×4 (07:34→16:35)
[2020-08-07] MEDS: *HR* Enoxaparin 40 MG/0.4 ML SYRINGE SQ SCH ×2 (07:34→21:27)
[2020-08-07] MEDS: Furosemide 20 MG/2 ML VIAL IVP SCH (07:34)
[2020-08-07] MEDS: Insulin LISPRO 300 UNITS/3 ML VIAL SUBQ SCH ×7 (07:48→21:28)
[2020-08-07] MEDS: Insulin DETEMIR 100 UNIT/ML X5UNITS SUBQ SCH ×2 (09:17→21:28)
[2020-08-07] MEDS: Fluconazole 200 MG/100 ML 200 MG/100 ML BAG IVPB SCH (13:17)
[2020-08-07] MEDS ORDERED: Furosemide 20 MG TABLET PO SCH (17:00)
[2020-08-07] MEDS: Melatonin 3 MG TABLET PO PRN (21:29)
[2020-08-08 04:44] LABS: Basophils # 0.1 K/mcL (0.0-0.2); Basophils % 0.5 %; Eosinophils # 0.2 K/mcL (0.0-0.6); Eosinophils % 1.2 %; Hematocrit 35.4 % (37.5-50.1); Hemoglobin 11.6 g/dL (12.9-16.9); Immature Granulocytes % 4.3 % (0-4); Lymphocytes # 1.4 K/mcL (0.6-4.6); Mean Corpuscular HGB Conc 32.8 g/dL (31.6-35.5); Mean Corpuscular Hemoglobin 31.5 pg (28.0-33.3); Mean Corpuscular Volume 96.2 fL (83.0-100.0); Mean Platelet Volume 9.7 fL (9.4-12.4); Monocytes # 0.5 K/mcL (0.0-1.3); Monocytes % 3.2 %; Neutrophils # 12.4 K/mcL (1.6-8.9); Platelet Count 337 K/mcL (140-400); Red Blood Count 3.68 M/mcL (4.19-5.50); Red Cell Distribution Width 12.8 % (11.5-14.5); Segmented Neutrophils % 81.8 %; White Blood Count 15.2 K/mcL (4.3-11.1)
[2020-08-08 05:07] LABS: BUN/Creatinine Ratio 55 (6-26); Blood Urea Nitrogen 24 mg/dL (6-20); Carbon Dioxide 38 mEq/L (23-29); Chloride 90 mEq/L (98-107); Glucose 121 mg/dL (70-105); Osmolality,Calculated 283 (280-300); Potassium 4.2 mEq/L (3.5-5.1); Sodium 134 mEq/L (136-145); eGFR For African Americans > 60 (> 60); eGFR For Non-African Americans > 60 (> 60)
[2020-08-08] MEDS: Insulin LISPRO 300 UNITS/3 ML VIAL SUBQ SCH ×6 (07:26→19:31)
[2020-08-08] MEDS: Lidocaine Viscous Oral Soln 15 ML SOLUTION MM SCH ×3 (07:46→16:23)
[2020-08-08] MEDS: Furosemide 20 MG TABLET PO SCH (07:48)
[2020-08-08] MEDS: dexAMETHasone 4 MG TABLET PO SCH (07:48)
[2020-08-08] MEDS: PARoxetine 20 MG TABLET PO SCH (07:48)
[2020-08-08] MEDS: Famotidine 20 MG TABLET PO SCH ×2 (07:48→19:30)
[2020-08-08] MEDS: *HR* Enoxaparin 40 MG/0.4 ML SYRINGE SQ SCH ×2 (07:49→19:30)
[2020-08-08] MEDS: Insulin DETEMIR 100 UNIT/ML X5UNITS SUBQ SCH ×2 (07:49→19:30)
[2020-08-08] MEDS: Fluconazole 200 MG/100 ML 200 MG/100 ML BAG IVPB SCH (07:50)
[2020-08-08] MEDS ORDERED: Insulin LISPRO 300 UNITS/3 ML VIAL SUBQ SCH (17:00)
[2020-08-08] MEDS: Melatonin 3 MG TABLET PO PRN (21:44)
[2020-08-09 04:25] LABS: Hematocrit 37.2 % (37.5-50.1); Hemoglobin 12.4 g/dL (12.9-16.9); Mean Corpuscular HGB Conc 33.3 g/dL (31.6-35.5); Mean Corpuscular Hemoglobin 32.3 pg (28.0-33.3); Mean Corpuscular Volume 96.9 fL (83.0-100.0); Mean Platelet Volume 9.5 fL (9.4-12.4); Platelet Count 364 K/mcL (140-400); Red Blood Count 3.84 M/mcL (4.19-5.50); White Blood Count 15.7 K/mcL (4.3-11.1)
[2020-08-09 04:53] LABS: BUN/Creatinine Ratio 39 (6-26); Blood Urea Nitrogen 20 mg/dL (6-20); Calcium 9.1 mg/dL (8.6-10.3); Carbon Dioxide 36 mEq/L (23-29); Chloride 91 mEq/L (98-107); Glucose 81 mg/dL (70-105); Osmolality,Calculated 282 (280-300); Potassium 4.2 mEq/L (3.5-5.1); Sodium 135 mEq/L (136-145); eGFR For African Americans > 60 (> 60); eGFR For Non-African Americans > 60 (> 60)
[2020-08-09] MEDS: Lidocaine Viscous Oral Soln 15 ML SOLUTION MM SCH ×3 (08:43→16:54)
[2020-08-09] MEDS: Insulin LISPRO 300 UNITS/3 ML VIAL SUBQ SCH ×7 (08:43→20:46)
[2020-08-09] MEDS: PARoxetine 20 MG TABLET PO SCH (08:44)
[2020-08-09] MEDS: Insulin DETEMIR 100 UNIT/ML X5UNITS SUBQ SCH ×2 (08:44→20:45)
[2020-08-09] MEDS: Furosemide 20 MG TABLET PO SCH (08:44)
[2020-08-09] MEDS: *HR* Enoxaparin 40 MG/0.4 ML SYRINGE SQ SCH (08:44)
[2020-08-09] MEDS: dexAMETHasone 4 MG TABLET PO SCH (08:44)
[2020-08-09] MEDS: Famotidine 20 MG TABLET PO SCH ×2 (08:45→20:47)
[2020-08-09] MEDS ORDERED: Fluconazole 40 MG/ML UDC PO SCH (09:00)
[2020-08-09] MEDS ORDERED: Isovue-370 500 ML BOTTLE IVP ONE (10:41)
[2020-08-09] MEDS: Melatonin 3 MG TABLET PO PRN (20:56)
[2020-08-10 05:54] LABS: Hematocrit 38.9 % (37.5-50.1); Hemoglobin 12.4 g/dL (12.9-16.9); Mean Corpuscular HGB Conc 31.9 g/dL (31.6-35.5); Mean Corpuscular Hemoglobin 31.3 pg (28.0-33.3); Mean Corpuscular Volume 98.2 fL (83.0-100.0); Mean Platelet Volume 9.1 fL (9.4-12.4); Platelet Count 417 K/mcL (140-400); Red Blood Count 3.96 M/mcL (4.19-5.50); Red Cell Distribution Width 13.3 % (11.5-14.5); White Blood Count 16.3 K/mcL (4.3-11.1)
[2020-08-10 06:14] LABS: BUN/Creatinine Ratio 42 (6-26); Blood Urea Nitrogen 22 mg/dL (6-20); Calcium 9.2 mg/dL (8.6-10.3); Carbon Dioxide 39 mEq/L (23-29); Chloride 91 mEq/L (98-107); Glucose 129 mg/dL (70-105); Osmolality,Calculated 287 (280-300); Potassium 4.6 mEq/L (3.5-5.1); Sodium 136 mEq/L (136-145); eGFR For African Americans > 60 (> 60); eGFR For Non-African Americans > 60 (> 60)
[2020-08-10 06:38] LABS: Eosinophils # 0.3 K/mcL (0.0-0.6); Neutrophils # 13.7 K/mcL (1.6-8.9); Platelet Estimate Normal (Normal)
[2020-08-10] MEDS: Famotidine 20 MG TABLET PO SCH ×2 (08:05→21:01)
[2020-08-10] MEDS: *HR* Enoxaparin 40 MG/0.4 ML SYRINGE SQ SCH (08:05)
[2020-08-10] MEDS: Lidocaine Viscous Oral Soln 15 ML SOLUTION MM SCH ×3 (08:05→16:14)
[2020-08-10] MEDS: Furosemide 20 MG TABLET PO SCH (08:06)
[2020-08-10] MEDS: Insulin LISPRO 300 UNITS/3 ML VIAL SUBQ SCH ×7 (08:06→21:02)
[2020-08-10] MEDS: dexAMETHasone 4 MG TABLET PO SCH (08:06)
[2020-08-10] MEDS: PARoxetine 20 MG TABLET PO SCH (08:06)
[2020-08-10] MEDS: Insulin DETEMIR 100 UNIT/ML X5UNITS SUBQ SCH ×2 (08:07→21:01)
[2020-08-10] MEDS: *HR* OxyCODONE/APAP 5/325 TABLET PO PRN ×2 (08:33→17:54)
[2020-08-10] MEDS ORDERED: Saline Nasal Spray 44 ML BOTTLE NS PRN (14:01)
[2020-08-10] MEDS ORDERED: Chloraseptic Spray 177 ML BOTTLE MM PRN (14:01)
[2020-08-10] MEDS: Chlorhexidine Rinse 15 ML MOUTHWASH MM SCH (21:01)
[2020-08-10] MEDS: Melatonin 3 MG TABLET PO PRN (21:08)
[2020-08-10] MEDS: Artificial Tears SOLN 15 ML BOTTLE BOTH EYES SCH (21:11)
[2020-08-11] MEDS: *HR* OxyCODONE/APAP 5/325 TABLET PO PRN ×4 (03:15→23:22)
[2020-08-11 07:11] LABS: Hematocrit 40.4 % (37.5-50.1); Hemoglobin 13.2 g/dL (12.9-16.9); Mean Corpuscular HGB Conc 32.7 g/dL (31.6-35.5); Mean Corpuscular Hemoglobin 32.4 pg (28.0-33.3); Mean Corpuscular Volume 99.3 fL (83.0-100.0); Mean Platelet Volume 9.1 fL (9.4-12.4); Platelet Count 443 K/mcL (140-400); Red Blood Count 4.07 M/mcL (4.19-5.50); Red Cell Distribution Width 13.8 % (11.5-14.5); White Blood Count 19.4 K/mcL (4.3-11.1)
[2020-08-11 07:48] LABS: Eosinophils # 0.4 K/mcL (0.0-0.6); Lymphocytes # 1.2 K/mcL (0.6-4.6); Monocytes # 0.6 K/mcL (0.0-1.3); Neutrophils # 17.3 K/mcL (1.6-8.9)
[2020-08-11 07:51] LABS: Alanine Aminotransferase 83 Units/L (7-52); Albumin 3.2 g/dL (3.5-5.7); Albumin/Globulin Ratio 0.8 (1.1-2.2); Alkaline Phosphatase 104 Units/L (34-104); Aspartate Amino Transferase 35 Units/L (13-39); BUN/Creatinine Ratio 41 (6-26); Bilirubin,Total 0.5 mg/dL (0.3-1.0); Blood Urea Nitrogen 24 mg/dL (6-20); Calcium 9.6 mg/dL (8.6-10.3); Carbon Dioxide 38 mEq/L (23-29); Chloride 92 mEq/L (98-107); Ferritin 631 ng/mL (20-250); Globulin 4.1 g/dL (2.4-3.5); Glucose 102 mg/dL (70-105); Lactate Dehydrogenase 409 Units/L (140-271); Magnesium 1.8 mg/dL (1.6-2.6); Osmolality,Calculated 288 (280-300); Phosphorous 3.8 mg/dL (2.7-4.5); Potassium 4.5 mEq/L (3.5-5.1); Sodium 137 mEq/L (136-145); Total Protein 7.3 g/dL (6.4-8.9); eGFR For African Americans > 60 (> 60); eGFR For Non-African Americans > 60 (> 60)
[2020-08-11] MEDS: Insulin LISPRO 300 UNITS/3 ML VIAL SUBQ SCH ×7 (08:31→21:17)
[2020-08-11] MEDS: Famotidine 20 MG TABLET PO SCH ×2 (08:48→21:14)
[2020-08-11] MEDS: dexAMETHasone 4 MG TABLET PO SCH (08:48)
[2020-08-11] MEDS: PARoxetine 20 MG TABLET PO SCH (08:48)
[2020-08-11] MEDS: *HR* Enoxaparin 40 MG/0.4 ML SYRINGE SQ SCH (08:48)
[2020-08-11] MEDS: Furosemide 20 MG TABLET PO SCH (08:49)
[2020-08-11] MEDS: Artificial Tears SOLN 15 ML BOTTLE BOTH EYES SCH ×2 (08:49→21:14)
[2020-08-11] MEDS: Insulin DETEMIR 100 UNIT/ML X5UNITS SUBQ SCH ×2 (08:49→21:16)
[2020-08-11] MEDS: Chlorhexidine Rinse 15 ML MOUTHWASH MM SCH ×2 (08:53→21:14)
[2020-08-11] MEDS: Lidocaine Viscous Oral Soln 15 ML SOLUTION MM SCH ×3 (08:53→17:19)
[2020-08-11 09:35] LABS: C-Reactive Protein 169 mg/L (Less than 10)
[2020-08-11 09:54] LABS: Chol/HDL Ratio 4.3 (0-4.9); Cholesterol 151 mg/dL (< 200); HDL Cholesterol 35 mg/dL (40-59); LDL Cholesterol,Calculated 91 mg/dL (< 100); Triglycerides 124 mg/dL (< 150)
[2020-08-11] MEDS ORDERED: Isovue-370 500 ML BOTTLE IVP ONE ×2 (14:39→14:42)
[2020-08-11 15:03] LABS: INR 1.4; Prothrombin Time 15.8 Seconds (9.4-12.1)
[2020-08-11 15:04] LABS: Activated Partial Thrombo Time 29.7 Seconds (26.0-36.0)
[2020-08-11 15:38] LABS: VBG HCO3 34 mEq/L (21-27); VBG PCO2 59 mmHg (41-51); VBG PH 7.37 pH Units (7.32-7.42); VBG PO2 71 mmHg (25-50)
[2020-08-11] MEDS: Melatonin 3 MG TABLET PO PRN (21:14)
[2020-08-11] MEDS ORDERED: Ketorolac 15 MG/ML VIAL IVP ONE (23:29)
[2020-08-12 05:52] LABS: Basophils # 0.1 K/mcL (0.0-0.2); Basophils % 0.3 %; Eosinophils # 0.8 K/mcL (0.0-0.6); Eosinophils % 4.4 %; Hematocrit 38.8 % (37.5-50.1); Hemoglobin 12.5 g/dL (12.9-16.9); Immature Granulocytes % 4.4 % (0-4); Lymphocytes # 1.7 K/mcL (0.6-4.6); Mean Corpuscular HGB Conc 32.2 g/dL (31.6-35.5); Mean Corpuscular Hemoglobin 31.8 pg (28.0-33.3); Mean Corpuscular Volume 98.7 fL (83.0-100.0); Monocytes # 0.5 K/mcL (0.0-1.3); Monocytes % 2.8 %; Neutrophils # 14.6 K/mcL (1.6-8.9); Platelet Count 437 K/mcL (140-400); Red Blood Count 3.93 M/mcL (4.19-5.50); Red Cell Distribution Width 13.7 % (11.5-14.5); Segmented Neutrophils % 79.1 %; White Blood Count 18.5 K/mcL (4.3-11.1)
[2020-08-12 05:55] LABS: VBG HCO3 38 mEq/L (21-27); VBG PCO2 67 mmHg (41-51); VBG PH 7.35 pH Units (7.32-7.42); VBG PO2 62 mmHg (25-50)
[2020-08-12 06:12] LABS: Alanine Aminotransferase 116 Units/L (7-52); Albumin 3.1 g/dL (3.5-5.7); Albumin/Globulin Ratio 0.7 (1.1-2.2); Alkaline Phosphatase 117 Units/L (34-104); Aspartate Amino Transferase 52 Units/L (13-39); BUN/Creatinine Ratio 50 (6-26); Bilirubin,Total 0.6 mg/dL (0.3-1.0); Blood Urea Nitrogen 28 mg/dL (6-20); Calcium 9.5 mg/dL (8.6-10.3); Carbon Dioxide 36 mEq/L (23-29); Chloride 92 mEq/L (98-107); Globulin 4.3 g/dL (2.4-3.5); Glucose 75 mg/dL (70-105); Lactate Dehydrogenase 389 Units/L (140-271); Magnesium 2.1 mg/dL (1.6-2.6); Osmolality,Calculated 284 (280-300); Phosphorous 4.6 mg/dL (2.7-4.5); Potassium 4.4 mEq/L (3.5-5.1); Sodium 135 mEq/L (136-145); Total Protein 7.4 g/dL (6.4-8.9); eGFR For African Americans > 60 (> 60); eGFR For Non-African Americans > 60 (> 60)
[2020-08-12 06:29] LABS: Ferritin 914 ng/mL (20-250)
[2020-08-12 07:07] LABS: INR 1.4; Prothrombin Time 15.7 Seconds (9.4-12.1)
[2020-08-12 07:10] LABS: Activated Partial Thrombo Time 28.4 Seconds (26.0-36.0)
[2020-08-12] MEDS ORDERED: Lidocaine/EPI 1:100k 1% 50 ML VIAL ONE (07:42)
[2020-08-12] MEDS: Insulin LISPRO 300 UNITS/3 ML VIAL SUBQ SCH ×4 (08:55→11:23)
[2020-08-12] MEDS: Insulin DETEMIR 100 UNIT/ML X5UNITS SUBQ SCH (08:56)
[2020-08-12] MEDS ORDERED: dexAMETHasone 4 MG TABLET PO SCH (09:00)
[2020-08-12] MEDS: Lidocaine Viscous Oral Soln 15 ML SOLUTION MM SCH ×3 (09:07→11:23)
[2020-08-12] MEDS: Chlorhexidine Rinse 15 ML MOUTHWASH MM SCH (09:07)
[2020-08-12] MEDS: PARoxetine 20 MG TABLET PO SCH (09:08)
[2020-08-12] MEDS: Furosemide 20 MG TABLET PO SCH (09:08)
[2020-08-12] MEDS: Famotidine 20 MG TABLET PO SCH (09:08)
[2020-08-12] MEDS: Artificial Tears SOLN 15 ML BOTTLE BOTH EYES SCH (09:09)
[2020-08-12] MEDS: *HR* OxyCODONE/APAP 5/325 TABLET PO PRN (09:27)
[2020-08-12 11:03] LABS: C-Reactive Protein > 300 mg/L (Less than 10)
[2020-08-12] MEDS ORDERED: Lidocaine -MPF 2% 2 ML VIAL ONE (11:13)
[2020-08-12] MEDS ORDERED: *HR* Succinylcholine 200 MG/10 ML VIAL IVP ONE (11:13)
[2020-08-12] MEDS ORDERED: *HR* Rocuronium Bromide 50 MG/5 ML VIAL ONE (11:13)
[2020-08-12] MEDS ORDERED: *HR* Midazolam HCl 2 MG/2 ML VIAL ONE (11:13)
[2020-08-12] MEDS ORDERED: *HR* Propofol 200 MG/20 ML VIAL IVP ONE (11:13)
[2020-08-12] MEDS ORDERED: Lidocaine HCL 4 ML Topical Solution (Laryng-O-Jet Kit Sterile Pak) TP ONE (11:13)
[2020-08-12] MEDS ORDERED: *HR* FentaNYL (PF) 100 MCG/2 ML VIAL ONE (11:13)
[2020-08-12] MEDS ORDERED: Ondansetron 4 MG/2 ML VIAL ONE (11:13)
[2020-08-12 11:26] VITALS: BP 108/78
[2020-08-12 12:17] LABS: Estimated Average Glucose 220 mg/dl; Hemoglobin A1C 9.3 %
[2020-08-12] MEDS ORDERED: EPINEPHrine 1 MG/ML VIAL ONE (12:53)
[2020-08-12] MEDS ORDERED: *HR* EPINEPHrine 1 MG/10 ML SYRINGE ONE ×2 (12:53→13:12)
[2020-08-12] MEDS ORDERED: ISOVUE-370 200 ML INFUS..BTL ONE (13:26)
[2020-08-12] MEDS ORDERED: Nitroglycerin 1,000 MCG/5 ML VIAL IV ONE (13:26)
[2020-08-12] MEDS ORDERED: *HR* Heparin 10,000 UNIT/10 ML VIAL ONE (13:26)
[2020-08-12] MEDS ORDERED: Heparin 1,000 UNITS/500 mL 0 ML ONE (13:26)
== END 2020-08-12 16:41 | disposition expired | DRG 871 ==
LOC: EMEROOARM 21:05 → 2NENU 21:05 → OBSVTOIN 07-15 02:26 → SUATTDRO 07-15 02:26 → 2NENU 07-15 02:53 → ICNU 07-19 21:00 → 2NNU 07-24 18:16
PROVIDERS: ADMIT Family Medicine; ATTEND Internal Medicine